=== PATIENT | male | born 1960 | race American Indian/Alaskan Native ===

== ENCOUNTER 2019-07-27 13:15 | Observation (INO) | payer MEDICARE ==
--- NOTE | 2019-07-27 13:38 | Event Note ---
ED Screening Note ED Screening Note: Mr. Michaels has hx of DM and dyslipidemia. Noncompliant with insulin medication. Kussmaul breathing. Referred from PCP today. This initial assessment/diagnostic orders/clinical plan/treatment(s) is/are subject to change based on patients health status, clinical progression and re- assessment by fellow clinical providers in the ED. Further treatment and workup at subsequent clinical providers discretion. Patient/guardian urged not to elope from the ED as their condition may be serious if not clinically assessed and managed. Initial orders include: labs
--- NOTE | 2019-07-27 14:14 | XRay Report ---
CHEST 2 VIEWS INDICATION: nausea malaise. COMPARISON: None FINDINGS: Support devices: None. Heart: Within normal limits. Lungs/pleura: The lung apices and right costophrenic angle has been excluded. Within these limitation s, there is no acute air space or interstitial disease. No pneumothorax. Additional findings: None. IMPRESSION: 1. No acute findings with the limitations above. Signer Name: Gregg Menendez MD Signed: 07/27/2019 2:09 PM Workstation Name: [id number]
[2019-07-27 14:32] LABS: Bacteria,Urine 2+ /HPF (Negative); Bilirubin,Urine NEG (Negative); Blood,Urine MOD (Negative); Color,Urine Yellow (Yellow); Mucus,Urine FEW /HPF
[2019-07-27 14:33] LABS: Protein,Urine >2000 mg dL mg/dL (Negative)
[2019-07-27 14:36] LABS: Basophils # (Auto) 0.1 K/mm3 (0.0-0.1); Basophils % (Auto) 0.7 % (0.0-1.8); Hematocrit 47.9 % (35.5-45.6); Hemoglobin 16.3 gm/dl (11.8-15.2); Lymphocytes # (Auto) 0.8 K/mm3 (1.2-5.4); Lymphocytes % (Auto) 11.5 % (13.4-35.0); Mean Corpuscular HGB Conc 34 % (32-34); Mean Corpuscular Volume 97 fl (84-94); Monocytes # (Auto) 0.7 K/mm3 (0.0-0.8); Monocytes % (Auto) 9.2 % (0.0-7.3); Platelet Count 249 K/mm3 (140-440); Red Blood Count 4.95 M/mm3 (3.65-5.03); Red Cell Distribution Width 13.7 % (13.2-15.2)
[2019-07-27] MEDS ORDERED: SODIUM CHLORIDE 0.9% 1000 ML 2,000 ML IV ONE (14:53)
[2019-07-27] MEDS ORDERED: cefTRIAXone/NS 1 GM/50 ML 1 GM/50 ML BAG IV ONE (14:54)
--- NOTE | 2019-07-27 14:55 | Emergency Department Report ---
ED General Adult HPI - General Chief complaint: Weakness Stated complaint: WEAKNESS, SUGAR HIGH Time Seen by Provider: 07/27/19 14:52 Source: patient Mode of arrival: Ambulatory Limitations: No Limitations - History of Present Illness Initial comments: 59 yo AA male that looks older than stated age comes to ER today with generalized weakness. He went by his PCP today and they sent him to ER. He was a walk in but due to his complaints they sent him here for a work up. His states he has been laying around for a couple days. He has had chills, generalized stomach aches, dec PO intake. Pt states he just feels weak - he endorses intermittent chest pain and sob. On initial exam pt was sleepy and not wanting to participate in conversation. was having to answer questions. Pt has complicated medical hx but is non adherent with his medications. When asked why he states "I dont know" -: Gradual, days(s) Associated Symptoms: chest pain, shortness of breath, weakness Treatments Prior to Arrival: none - Related Data Previous Rx's Medication Instructions Recorded Last Taken Type Cyclobenzaprine [Flexeril] 10 mg PO TID PRN #20 tablet 12/18/15 Unknown Rx Ibuprofen [Motrin 800 MG tab] 800 mg PO Q8HR PRN #30 tablet 12/18/15 Unknown Rx Allergies Allergy/AdvReac Type Severity Reaction Status Date / Time No Known Allergies Allergy Verified 12/18/15 10:36 ED Review of Systems ROS: Stated complaint: WEAKNESS, SUGAR HIGH Other details as noted in HPI Comment: All other systems reviewed and negative ED Past Medical Hx - Past Medical History Previous Medical History?: Yes Hx Hypertension: Yes Hx CVA: No Hx Heart Attack/AMI: No Hx Congestive Heart Failure: No Hx Diabetes: Yes Hx Deep Vein Thrombosis: No Hx Pulmonary Embolism: No Hx GERD: No Hx Liver Disease: No Hx Renal Disease: No Hx of Cancer: No Hx Sickle Cell Disease: No Hx Arthritis: No Hx Headaches / Migraines: No Hx Seizures: No Hx Kidney Stones: No Hx Psychiatric Treatment: Yes () Hx Asthma: No Hx COPD: No Hx Tuberculosis: No Hx Dementia: No Hx HIV: No Additional medical history: HLD - Surgical History Past Surgical History?: No - Family History Family history: other (MOM WAS KILLED AND DAD DEC OF CVA) - Social History Smoking Status: Never Smoker Substance Use Type: None - Medications Home Medications: Home Medications Medication Instructions Recorded Confirmed Last Taken Type Cyclobenzaprine [Flexeril] 10 mg PO TID PRN #20 tablet 12/18/15 Unknown Rx Ibuprofen [Motrin 800 MG tab] 800 mg PO Q8HR PRN #30 tablet 12/18/15 Unknown Rx ED Physical Exam - General Limitations: No Limitations General appearance: alert - Head Head exam: Present: atraumatic, normocephalic - Eye Eye exam: Present: normal appearance - ENT ENT exam: Present: mucous membranes dry - Neck Neck exam: Present: normal inspection - Respiratory Respiratory exam: Present: normal lung sounds bilaterally. Absent: respiratory distress - Cardiovascular Cardiovascular Exam: Present: regular rate, normal rhythm, tachycardia. Absent: systolic murmur, diastolic murmur, rubs, gallop - GI/Abdominal GI/Abdominal exam: Present: soft, normal bowel sounds - Rectal Rectal exam: Present: deferred - Extremities Exam Extremities exam: Present: normal inspection - Back Exam Back exam: Present: normal inspection - Neurological Exam Neurological exam: Present: alert, oriented X3 - Psychiatric Psychiatric exam: Present: other (FLAT) - Skin Skin exam: Present: dry, intact, pallor. Absent: rash ED Course Vital Signs 07/27/19 13:37 Temperature 99.4 F Pulse Rate 99 H Respiratory 18 Rate Blood Pressure 189/107 O2 Sat by Pulse 100 Oximetry - Reevaluation(s) Reevaluation #1: 07/27/19 16:10 MEDS PT IS TO BE ON AT HOME- BUT DOES NOT TAKE METFORMIN ER GLIPIZIDE INSULIN STATIN MED FOR DEPRESSION ED Medical Decision Making - Lab Data Result diagrams: 07/27/19 14:18 07/27/19 14:18 - EKG Data EKG shows normal: sinus rhythm - EKG Data Interpretation: no acute changes - Radiology Data Radiology results: report reviewed, image reviewed CT NAP chest xray NAP - Medical Decision Making Labs 07/27/19 07/27/19 07/27/19 13:54 14:18 14:18 WBC 7.2 RBC 4.95 Hgb 16.3 H Hct 47.9 H MCV 97 H MCH 33 H MCHC 34 RDW 13.7 Plt Count 249 Lymph % (Auto) 11.5 L [place] % (Auto) 9.2 H Eos % (Auto) 0.0 Baso % (Auto) 0.7 Lymph # 0.8 L [place] # 0.7 Eos # 0.0 Baso # 0.1 Seg Neutrophils % 78.6 H Seg Neutrophils # 5.6 VBG pH Sodium 134 L Potassium 4.2 Chloride 94.9 L Carbon Dioxide 20 L Anion Gap 23 BUN 11 Creatinine 1.1 Estimated GFR > 60 BUN/Creatinine Ratio 10 Glucose 299 H POC Glucose 262 H Calcium 9.4 Phosphorus 3.30 Magnesium 1.90 Total Bilirubin 0.20 AST 18 ALT 15 Alkaline Phosphatase 77 Total Protein 7.3 Albumin 3.9 Albumin/Globulin Ratio 1.1 Urine Color Urine Turbidity Urine pH Ur Specific [place] Urine Protein Urine Glucose (UA) Urine Ketones Urine Blood Urine Nitrite Urine Bilirubin Urine Urobilinogen Ur Leukocyte Esterase Urine WBC (Auto) Urine RBC (Auto) U Epithel Cells (Auto) Urine Bacteria (Auto) Urine Mucus 07/27/19 07/27/19 14:18 Unknown WBC RBC Hgb Hct MCV MCH MCHC RDW Plt Count Lymph % (Auto) [place] % (Auto) Eos % (Auto) Baso % (Auto) Lymph # [place] # Eos # Baso # Seg Neutrophils % Seg Neutrophils # VBG pH 7.361 Sodium Potassium Chloride Carbon Dioxide Anion Gap BUN Creatinine Estimated GFR BUN/Creatinine Ratio Glucose POC Glucose Calcium Phosphorus Magnesium Total Bilirubin AST ALT Alkaline Phosphatase Total Protein Albumin Albumin/Globulin Ratio Urine Color Yellow Urine Turbidity Cloudy Urine pH 6.0 Ur Specific [place] 1.031 H Urine Protein >2000 mg dl Urine Glucose (UA) >=500 Urine Ketones 20 Urine Blood Mod Urine Nitrite Neg Urine Bilirubin Neg Urine Urobilinogen 2.0 Ur Leukocyte Esterase Lg Urine WBC (Auto) 168.0 H Urine RBC (Auto) 47.0 U Epithel Cells (Auto) 7.0 Urine Bacteria (Auto) 2+ Urine Mucus Few labs noted ua noted NS/rocephin IV urine culture sent [address] Rich blood cultures/lactic acid ordered serial troponin being collected will admit pt to obs for further evaluation. - Differential Diagnosis ro acs/ro dka/ro urti Critical care attestation.: If time is entered above; I have spent that time in minutes in the direct care of this critically ill patient, excluding procedure time. ED Disposition Clinical Impression: History of chronic hypertension, Non-adherence to medical treatment, Hyperg lycemia, SIRS (systemic inflammatory response syndrome), Dehydration, Nephrotic syndrome Disposition: OP ADMIT IP TO THIS HOSP Is pt being admited?: Yes Does the pt Need Aspirin: Yes Condition: Stable Additional Instructions: DIABETIC DIET STAY WELL HYDRATED TAKE YOUR DAILY MEDS PER YOUR PCP FOLLOW YOUR BLOOD SUGAR MOTRIN OR TYLENOL FOR PAIN OR FEVER FOLLOW UP WITH PCP IN 48 HOURS FOR RECHECK TO BE SURE YOU ARE GETTING BETTER. Time of Disposition: 15:50
[2019-07-27 15:06] LABS: Alanine Aminotransferase 15 units/L (7-56); Albumin 3.9 g/dL (3.9-5); BUN/Creatinine Ratio 10; Blood Urea Nitrogen 11 mg/dL (9-20); Calcium 9.4 mg/dL (8.4-10.2); Hemolysis Index 7
[2019-07-27] MEDS ORDERED: INSULIN REGULAR, HUMAN 100 UNITS/1 ML IV ONE (15:12)
--- NOTE | 2019-07-27 16:03 | Cat Scan Report ---
CT ABDOMEN AND PELVIS WITHOUT CONTRAST HISTORY: MAIN: abd pain x 2 days 1 day n/v and weakness . COMPARISON: CT abdomen/pelvis from 07/31/2015 TECHNIQUE: CT images of the abdomen and pelvis were obtained without administration of intravenous co ntrast. All CT scans at this location are performed using CT dose reduction for ALARA by means of au tomated exposure control. FINDINGS: Lungs/bones: Lung bases are clear. There are degenerative changes within the spine and pelvis with n othing acute. Abdomen/pelvis: There is motion artifact. The liver is mildly enlarged with no focal mass identified. The gallbladder, spleen, pancreas, adrena ls, and proximal GI tract appear unremarkable. There is mild bilateral perinephric stranding but no obstructive stone disease, hydronephrosis, or ma ss. The prostate is enlarged and indents the bladder base. There are again small bilateral bladder divert icula. No pelvic free fluid and no acute colonic abnormality. Terminal ileum and appendix appear norm al. IMPRESSION: 1. No acute abnormality. Incidental findings as above. Signer Name: Gregg Menendez MD Signed: 07/27/2019 3:58 PM Workstation Name: [id number]
[2019-07-27] MEDS ORDERED: ASPIRIN 325 MG TAB PO ONE (16:45)
[2019-07-27] MEDS ORDERED: CYCLOBENZAPRINE 10 MG TAB PO PRN (19:34)
[2019-07-27] MEDS ORDERED: ONDANSETRON 4 MG/2 ML INJ IV PRN (19:35)
[2019-07-27] MEDS ORDERED: HYDROmorphone 1 MG/1 ML INJ IV PRN (19:35)
[2019-07-27] MEDS ORDERED: oxyCODONE /ACETAMINOPHEN 5-325MG TAB PO PRN (19:35)
[2019-07-27] MEDS ORDERED: ACETAMINOPHEN 325 MG TAB PO PRN (19:35)
[2019-07-27] MEDS: cefTRIAXone/NS 2 GM/100 ML 2 GM/100 ML BAG IV SCH (22:23)
[2019-07-27] MEDS: SODIUM CHLORIDE 0.9% 1000 ML 1,000 ML IV SCH (22:24)
[2019-07-27] MEDS: FAMOTIDINE 20 MG/2 ML INJ IV SCH (22:25)
[2019-07-27] MEDS: HEPARIN 5,000 UNIT/1 ML VIAL SUB-Q SCH (22:27)
[2019-07-27] MEDS ORDERED: DEXTROSE 50% IN WATER (25GM) 50 ML SYRINGE IV PRN (23:45)
[2019-07-28 05:11] LABS: Basophils % (Auto) 0.7 % (0.0-1.8); Hematocrit 44.7 % (35.5-45.6); Hemoglobin 15.2 gm/dl (11.8-15.2); Lymphocytes # (Auto) 1.2 K/mm3 (1.2-5.4); Lymphocytes % (Auto) 18.1 % (13.4-35.0); Mean Corpuscular HGB Conc 34 % (32-34); Mean Corpuscular Volume 96 fl (84-94); Monocytes # (Auto) 0.8 K/mm3 (0.0-0.8); Monocytes % (Auto) 12.1 % (0.0-7.3); Platelet Count 235 K/mm3 (140-440); Red Blood Count 4.68 M/mm3 (3.65-5.03); Red Cell Distribution Width 13.9 % (13.2-15.2)
[2019-07-28 05:38] LABS: Alanine Aminotransferase 13 units/L (7-56); Albumin 3.6 g/dL (3.9-5); BUN/Creatinine Ratio 11; Blood Urea Nitrogen 11 mg/dL (9-20); Calcium 8.5 mg/dL (8.4-10.2); Hemolysis Index 1
--- NOTE | 2019-07-28 07:24 | Event Note ---
Date: 07/27/19 See H/p in reports UTI
--- NOTE | 2019-07-28 08:16 | History and Physical Report ---
CHIEF COMPLAINT: High sugars and severe weakness. HISTORY OF PRESENT ILLNESS: A 59-year-old male comes in for increasing weakness. The patient also has been lying around ____ couple of days and not walking along. Also, the patient ____. The patient states that he feels very weak. Also, has ____. Also, patient feels sleepy and tired. PAST MEDICAL HISTORY: Significant for hypertension, GERD and diabetes and ____ none. PAST SURGICAL HISTORY: None. FAMILY HISTORY: Hypertension, coronary artery disease. SOCIAL HISTORY: Does not smoke. REVIEW OF SYSTEMS: Significant for severe weakness ____ and lethargy. PHYSICAL EXAMINATION: GENERAL: A young elderly male, cooperative during examination, lethargic. VITAL SIGNS: Blood pressure is 189/107, temperature is 101.3, repeat blood pressure 200/101. HEENT: Dry mucous membranes. NECK: Supple, no lymphadenopathy, no thyromegaly. LUNGS: Clear to auscultation and percussion. Good air entry. CARDIOVASCULAR: S1, S2 heard. No gallop, no murmur, no rub. Apical impulse in left fifth intercostal space and midclavicular line. ABDOMEN: Soft and benign. No hepatosplenomegaly, no guarding, no rigidity. Hernial orifices are normal. EXTREMITIES: Good pedal pulses. No pedal edema. CENTRAL NERVOUS SYSTEM: Awake, but lethargic. SKIN: Normal. LABORATORY DATA: White count is 7200, H and H is 16.3 and 47.9, platelet count is 349,000. Sodium is 133, potassium is 3.2, chloride is 93.9, bicarbonate of 20, glucose is 299. A1c is 13.3. LFTs are normal. Urine shows ____. Chest x-ray with no infiltrate. EKG normal sinus rhythm, no acute ST-T wave changes. Abdominal CAT scan shows no acute abnormality. ASSESSMENT AND PLAN: 1. The patient is being hypertensive emergency. The patient is admitted for control of blood pressure. The patient was initiated on antihypertensives and IV hydralazine 10 mg q. 3 p.r.n. 2. Uncontrolled diabetes. The patient started on NovoLog mix 70/30. The patient to be counseled about diabetes. Also, dietitian consult. 3. Urinary tract infection, IV Rocephin initiated. 4. Severe debility. The patient to get physical therapy. 5. Deep venous thrombosis prophylaxis, heparin 5000 q. 12. JOB# [id number] SILVIA/NTS
[2019-07-28] MEDS: SODIUM CHLORIDE 0.9% 1000 ML 1,000 ML IV SCH ×2 (08:28→18:11)
[2019-07-28] MEDS: INSULIN LISPRO 100 UNIT/ML SUB-Q SCH ×4 (08:30→22:39)
[2019-07-28] MEDS: cefTRIAXone/NS 2 GM/100 ML 2 GM/100 ML BAG IV SCH (11:10)
[2019-07-28] MEDS: VALSARTAN 160MG TAB PO SCH (11:11)
[2019-07-28] MEDS: FAMOTIDINE 20 MG/2 ML INJ IV SCH ×2 (11:12→22:54)
[2019-07-28] MEDS: HEPARIN 5,000 UNIT/1 ML VIAL SUB-Q SCH ×2 (11:12→22:54)
[2019-07-28] MEDS: GLIMEPIRIDE 4 MG TAB PO SCH (11:12)
--- NOTE | 2019-07-28 14:43 | Progress Note ---
Assessment and Plan Assessment and plan: 59-year-old male patient with significant past medical history of hypertension coronary artery disease was admitted through emergency room with polyuria polydipsia and uncontrolled sugars with severe weakness and fever Initial evaluation is consistent with uncontrolled diabetes mellitus, urinary tract infection and febrile illness --Febrile illness; MAXIMUM TEMPERATURE 101.3 Probably secondary to UTI, continue empiric antibiotics Follow cultures, plenty oral fluids, IV fluids as needed --Urinary tract infection; Continue empiric antibiotics, follow cultures --Uncontrolled diabetes mellitus; Accu-Chek sliding scale coverage and ADA diet and insulin as needed Hemoglobin A1c 10.3 --DVT prophylaxis, Lovenox Closely monitor the patient and adjust the management as needed Plan of care reviewed with the patient and his Answered all the questions Disposition; follow cultures and sensitivities Discharged in medically stable History Interval history: Patient seen and examined medical records reviewed admitted with uncontrolled blood sugars, fevers and urinary tract infection On empiric antibiotics Patient feels slightly better, febrile MAXIMUM TEMPERATURE 101.3 Vital signs reviewed Hospitalist Physical - Constitutional Vitals: Temp Pulse Resp BP Pulse Ox 98.5 F 88 18 149/85 90 07/28/19 06:31 07/28/19 06:31 07/28/19 06:31 07/28/19 06:31 07/28/19 06:31 General appearance: Present: mild distress, well-nourished - EENT Eyes: Present: PERRL, EOM intact - Neck Neck: Present: supple, normal ROM - Respiratory Respiratory effort: normal Respiratory: bilateral: diminished, negative: rales, rhonchi, wheezing - Cardiovascular Rhythm: regular Heart Sounds: Present: S1 & S2 - Extremities Extremities: no ischemia, No edema - Abdominal General gastrointestinal: soft, non-tender, non-distended - Integumentary Integumentary: Present: clear, warm - Psychiatric Psychiatric: appropriate mood/affect, cooperative - Neurologic Neurologic: CNII-XII intact, moves all extremities Results - Labs CBC & Chem 7: 07/28/19 04:37 07/28/19 04:37 Labs: Laboratory Last Values WBC 6.7 K/mm3 (4.5-11.0) 07/28/19 04:37 RBC 4.68 M/mm3 (3.65-5.03) 07/28/19 04:37 Hgb 15.2 gm/dl (11.8-15.2) 07/28/19 04:37 Hct 44.7 % (35.5-45.6) 07/28/19 04:37 MCV 96 fl (84-94) H 07/28/19 04:37 MCH 32 pg (28-32) 07/28/19 04:37 MCHC 34 % (32-34) 07/28/19 04:37 RDW 13.9 % (13.2-15.2) 07/28/19 04:37 Plt Count 235 K/mm3 (140-440) 07/28/19 04:37 Lymph % (Auto) 18.1 % (13.4-35.0) 07/28/19 04:37 [place] % (Auto) 12.1 % (0.0-7.3) H 07/28/19 04:37 Eos % (Auto) 0.0 % (0.0-4.3) 07/28/19 04:37 Baso % (Auto) 0.7 % (0.0-1.8) 07/28/19 04:37 Lymph # 1.2 K/mm3 (1.2-5.4) 07/28/19 04:37 [place] # 0.8 K/mm3 (0.0-0.8) 07/28/19 04:37 Eos # 0.0 K/mm3 (0.0-0.4) 07/28/19 04:37 Baso # 0.0 K/mm3 (0.0-0.1) 07/28/19 04:37 Seg Neutrophils % 69.1 % (40.0-70.0) 07/28/19 04:37 Seg Neutrophils # 4.6 K/mm3 (1.8-7.7) 07/28/19 04:37 VBG pH 7.361 (7.320-7.420) 07/27/19 14:18 Sodium 137 mmol/L (137-145) 07/28/19 04:37 Potassium 4.2 mmol/L (3.6-5.0) 07/28/19 04:37 Chloride 99.3 mmol/L (98-107) 07/28/19 04:37 Carbon Dioxide 23 mmol/L (22-30) 07/28/19 04:37 Anion Gap 19 mmol/L 07/28/19 04:37 BUN 11 mg/dL (9-20) 07/28/19 04:37 Creatinine 1.0 mg/dL (0.8-1.5) 07/28/19 04:37 Estimated GFR > 60 ml/min 07/28/19 04:37 BUN/Creatinine Ratio 11 % 07/28/19 04:37 Glucose 223 mg/dL (75-100) H 07/28/19 04:37 POC Glucose 287 (70-105) H 07/28/19 12:09 Hemoglobin A1c 13.3 % (4-6) H 07/28/19 04:37 Lactic Acid 1.60 mmol/L (0.7-2.0) 07/27/19 16:45 Calcium 8.5 mg/dL (8.4-10.2) 07/28/19 04:37 Phosphorus 3.30 mg/dL (2.5-4.5) 07/27/19 14:18 Magnesium 1.90 mg/dL (1.7-2.3) 07/27/19 14:18 Total Bilirubin 0.20 mg/dL (0.1-1.2) 07/28/19 04:37 AST 17 units/L (5-40) 07/28/19 04:37 ALT 13 units/L (7-56) 07/28/19 04:37 Alkaline Phosphatase 65 units/L (35-129) 07/28/19 04:37 Troponin T < 0.010 ng/mL (0.00-0.029) 07/27/19 16:45 Total Protein 6.4 g/dL (6.3-8.2) 07/28/19 04:37 Albumin 3.6 g/dL (3.9-5) L 07/28/19 04:37 Albumin/Globulin Ratio 1.3 % 07/28/19 04:37 Urine Color Yellow (Yellow) 07/27/19 Unknown Urine Turbidity Cloudy (Clear) 07/27/19 Unknown Urine pH 6.0 (5.0-7.0) 07/27/19 Unknown Ur Specific [place] 1.031 (1.003-1.030) H 07/27/19 Unknown Urine Protein >2000 mg dl mg/dL (Negative) 07/27/19 Unknown Urine Glucose (UA) >=500 mg/dL (Negative) 07/27/19 Unknown Urine Ketones 20 mg/dL (Negative) 07/27/19 Unknown Urine Blood Mod (Negative) 07/27/19 Unknown Urine Nitrite Neg (Negative) 07/27/19 Unknown Urine Bilirubin Neg (Negative) 07/27/19 Unknown Urine Urobilinogen 2.0 mg/dL (<2.0) 07/27/19 Unknown Ur Leukocyte Esterase Lg (Negative) 07/27/19 Unknown Urine WBC (Auto) 168.0 /HPF (0.0-6.0) H 07/27/19 Unknown Urine RBC (Auto) 47.0 /HPF (0.0-6.0) 07/27/19 Unknown U Epithel Cells (Auto) 7.0 /HPF (0-13.0) 07/27/19 Unknown Urine Bacteria (Auto) 2+ /HPF (Negative) 07/27/19 Unknown Urine Mucus Few /HPF 07/27/19 Unknown Active Medications - Current Medications Current Medications: Generic Name Dose Route Start Last Admin Trade Name Freq PRN Reason Stop Dose Admin Acetaminophen 650 mg 07/27/19 19:35 Tylenol PO Q4H PRN Pain MILD(1-3)/Fever >100.5/LITTLE Cyclobenzaprine HCl 10 mg 07/27/19 19:34 Flexeril PO TID PRN Muscle Spasm Dextrose 0 ml 07/27/19 23:45 D50w (25gm) Syringe IV Q30MIN PRN Hypoglycemia Protocol Famotidine 20 mg 07/27/19 22:00 07/28/19 11:12 Pepcid IV 20 mg BID AMRITA Administration Glimepiride 4 mg 07/28/19 09:00 07/28/19 11:12 Amaryl PO 4 mg QDDIAB AMRITA Administration Heparin Sodium (Porcine) 5,000 unit 07/27/19 22:00 07/28/19 11:12 Heparin SUB-Q 5,000 unit Q12HR AMRITA Administration Hydromorphone HCl 0.5 mg 07/27/19 19:35 Dilaudid IV Q3H PRN Pain , Severe (7-10) Sodium Chloride 1,000 mls @ 100 mls/hr 07/27/19 19:45 07/28/19 08:28 Nacl 0.9% 1000 Ml IV 100 mls/hr DIRECT AMRITA Administration Ceftriaxone Sodium 2 gm in 100 mls @ 200 mls/hr 07/27/19 20:00 07/28/19 11:10 Rocephin/Ns 2 Gm/100 Ml IV 200 mls/hr Q24HR AMRITA Administration Protocol Insulin Human Lispro 0 unit 07/28/19 07:30 07/28/19 13:10 Humalog SUB-Q 2 unit ACHS AMRITA Administration Protocol Ondansetron HCl 4 mg 07/27/19 19:35 Zofran IV Q8H PRN Nausea And Vomiting Oxycodone/Acetaminophen 1 tab 07/27/19 19:35 07/27/19 22:25 Percocet 5/325 PO 1 tab Q6H PRN Administration Pain, Moderate (4-6) Sodium Chloride 10 ml 07/27/19 22:00 07/28/19 11:13 Sodium Chloride Flush Syringe 10 Ml IV 10 ml BID AMRITA Administration Sodium Chloride 10 ml 07/27/19 19:35 Sodium Chloride Flush Syringe 10 Ml IV PRN PRN LINE FLUSH Valsartan 160 mg 07/28/19 10:00 07/28/19 11:11 Diovan PO 160 mg DAILY AMRITA Administration Nutrition/Malnutrition Assess - Dietary Evaluation Nutrition/Malnutrition Findings: Nutrition Notes Start: 07/28/19 10:29 Freq: Status: Active Protocol: Document 07/28/19 10:29 AP (Rec: 07/28/19 11:22 AP [id number]) Co-Sign 07/28/19 10:29 LP Nutrition Notes Need for Assessment generated from: MD Order,MST Initial or Follow up Assessment Current Diagnosis Diabetes,Hypertension Other Pertinent Diagnosis GERD, UTI, dehydration Current Diet Regular Labs/Tests BG 223 A1c 13.3 Pertinent Medications Humalog percocet NS 100ml/hr pepcid Height 6 ft 2 in Weight 100.2 kg [place] Body Weight (kg) 86.36 BMI 28.3 Intake Prior to Admission Fair Weight Status Overweight Subjective/Other Information Consult for MST. Pt states his appetite is poor instay. Pt denies any recent weight loss. Pt ate 50% of bfast. No wasting noted. Burn Absent Trauma Absent GI Symptoms None Current % PO Fair (50-74%) Minimum of two criteria No physical signs of malnutrition #1 Nutrition Diagnosis Inadequate oral intake Etiology hyperglycemia, weakness As Evidenced by Signs and Symptoms Pt reoprts consuming <50% bfast tray, poor appetite Is patient on ventilator? No Is Patient Ambulatory and/or Out of Bed Yes REE-([place]-St. Jeor-ambulatory/OOB) [ 2452.775 NUTR.MSJOOB] Kcal/Kg value to use for calculation 21 Approximate Energy Requirements Using 2104 kcal/Kg Calculation Used for Recommendations Kcal/kg Additional Notes PRO needs: 80-100g (0.8-1g/kg) Fluids: 1ml/kcal or per MD Nutrition Intervention Change Diet Order: Cardiac/Consistent carb Add Supplement/Snack (indicate name/kcal Glucerna BID /protein ) Provides kCal: 440 Provides Protein (gm) 20 Patient aware of follow up options Yes Goal #1 Pt meet >80% kcal/PRO needs via PO/ONS Follow-Up By: 08/02/19 Additional Comments F/U for PO/ONS intakes. Diet education-DM.
[2019-07-29 05:39] VITALS: BP 148/82
[2019-07-29] MEDS: SODIUM CHLORIDE 0.9% 1000 ML 1,000 ML IV SCH (06:28)
[2019-07-29] MEDS: GLIMEPIRIDE 4 MG TAB PO SCH (09:29)
[2019-07-29] MEDS: INSULIN LISPRO 100 UNIT/ML SUB-Q SCH (09:32)
[2019-07-29] MEDS: FAMOTIDINE 20 MG/2 ML INJ IV SCH (10:49)
[2019-07-29] MEDS: cefTRIAXone/NS 2 GM/100 ML 2 GM/100 ML BAG IV SCH (10:49)
[2019-07-29] MEDS: VALSARTAN 160MG TAB PO SCH (10:52)
[2019-07-29] MEDS: HEPARIN 5,000 UNIT/1 ML VIAL SUB-Q SCH (10:52)
--- NOTE | 2019-07-29 11:36 | Discharge Summary ---
Providers - Providers Date of Admission: 07/27/19 16:38 Date of discharge: 07/29/19 Attending physician: SANNA NAIR 07/28/19 07:31 Consult to Dietitian/Nutrition [CONS] Routine Physician Instructions: Reason For Exam: Reason for Consult: Pt needs oral supplement Physical Therapy Evaluation and Treat [CONS] Routine Comment: Reason For Exam: Debility Primary care physician: NARDA QUIROGA Hospitalization Condition: Stable Pertinent studies: CT abdomen and pelvis Hospital course: 59-year-old male patient with significant past medical history of hypertension coronary artery disease was admitted through emergency room with polyuria polydipsia and uncontrolled sugars with severe weakness and fever Initial evaluation is consistent with uncontrolled diabetes mellitus, urinary tract infection and febrile illness --Febrile illness; MAXIMUM TEMPERATURE 101.3 Probably secondary to UTI, continue empiric antibiotics Follow cultures, plenty oral fluids, IV fluids as needed --Urinary tract infection; Continue empiric antibiotics, follow cultures --Uncontrolled diabetes mellitus; Accu-Chek sliding scale coverage and ADA diet and insulin as needed Hemoglobin A1c 10.3 --DVT prophylaxis, Lovenox Time spent for discharge: 32 min Core Measure Documentation - Palliative Care Palliative Care/ Comfort Measures: Not Applicable Exam - Constitutional Vitals: Temp Pulse Resp BP Pulse Ox 98.3 F 77 20 148/82 94 07/29/19 05:37 07/29/19 10:52 07/29/19 05:37 07/29/19 10:52 07/29/19 05:37 Plan Activity: no restrictions Diet: diabetic Additional Instructions: Advised to see primary care physician in 3-5 days. Advised to see private industrial registered nurse for management of diabetes mellitus Follow up with: NARDA QUIROGA SR, MD [Primary Care Provider] - 7 Days Prescriptions: Glimepiride [Amaryl] 4 mg PO QDDIAB #30 tablet Valsartan [Diovan] 160 mg PO DAILY #30 tablet levoFLOXacin [Levaquin] 750 mg PO QDAY #5 tablet
[2019-07-29] MEDS ORDERED: FAMOTIDINE 20 MG TAB PO SCH (22:00)
== END 2019-07-29 13:34 | disposition home or self-care (01) ==
LOC: ED 13:15 → 3A 16:38
PROVIDERS: ADMIT Internal Medicine; ATTEND Internal Medicine
DX: E11.65 Type 2 diabetes mellitus with hyperglycemia (principal); R65.10 Systemic inflammatory response syndrome (SIRS) of non-infectious origin without acute organ dysfunction; E86.0 Dehydration; I16.0 Hypertensive urgency; N39.0 Urinary tract infection, site not specified; R53.81 Other malaise; K21.9 Gastro-esophageal reflux disease without esophagitis; N04.9 Nephrotic syndrome with unspecified morphologic changes; F17.210 Nicotine dependence, cigarettes, uncomplicated
CPT/HCPCS: 36415; 71046; 74176; 80053; 81001; 82140; 82805; 82962; 83036; 83735; 84100; 84484; 85025; 87040; 87086; 93005; 93010; 96361; 96365; 96366; 96372; 96375; 96376; 97162; 99284; 99406; G0378; J0696; J1644; J7030; J1815

== ENCOUNTER 2021-10-24 02:05 | Emergency (ER) | payer MEDICARE ==
[2021-10-24 02:15] VITALS: BP 141/79
== END 2021-10-24 02:20 | disposition left against medical advice (07) ==
LOC: ED 02:05
DX: E16.2 Hypoglycemia, unspecified (principal); Z53.21 Procedure and treatment not carried out due to patient leaving prior to being seen by health care provider

== ENCOUNTER 2022-03-22 20:25 | Inpatient (IN) | payer MEDICARE ==
[2022-03-22] MEDS ORDERED: SODIUM CHLORIDE 0.9% 1000 ML 1,000 ML IV ONE ×2 (21:31→23:33)
--- NOTE | 2022-03-22 22:09 | XRay Report ---
CHEST 1 VIEW 03/22/2022 9:03 PM INDICATION / CLINICAL INFORMATION: Altered Mental Status. COMPARISON: 2 views of the chest from 07/27/2019. FINDINGS: SUPPORT DEVICES: None. HEART / MEDIASTINUM: No significant abnormality. LUNGS / PLEURA: No significant pulmonary abnormality. No significant pleural effusion. No pneumothora x. ADDITIONAL FINDINGS: No significant additional findings. IMPRESSION: 1. No acute abnormality of the chest. Signer Name: Naresh Roldan MD Signed: 03/22/2022 10:05 PM Workstation Name: [id number]
--- NOTE | 2022-03-22 22:17 | Cat Scan Report ---
CT HEAD WITHOUT CONTRAST INDICATION / CLINICAL INFORMATION: Altered Mental Status. TECHNIQUE: All CT scans at this location are performed using CT dose reduction for ALARA by means of automated e xposure control. COMPARISON: None available. FINDINGS: HEMORRHAGE: No evidence of intracranial hemorrhage or extra-axial fluid collection. EXTRA-AXIAL SPACES: Cortical sulci and sylvian fissures are at the upper limit size for the patient's age of 61 years. Basilar cisterns have an unremarkable appearance. VENTRICULAR SYSTEM: The third and lateral ventricles are mildly enlarged reflecting presence of paren chymal volume loss. CEREBRAL PARENCHYMA: Extensive periventricular, subcortical deep white matter lucency is observed. Th is is probably secondary to advanced microvascular ischemic change. There is no indication of recent infarction. 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 The largest of these is located in the left putamen. Additional remote small deep gangliocapsular infarctions are observed bilaterally. MIDLINE SHIFT OR HERNIATION: There is no mass effect. CEREBELLUM / BRAINSTEM: Brainstem has an unremarkable appearance. Age related cerebellar atrophy is n oted. MIDLINE STRUCTURES:Pituitary gland has an unremarkable appearance. No abnormalities are seen in the p ineal region. INTRACRANIAL VESSELS:Calcified atherosclerotic plaque is present along the course of the cavernous se gments of both internal carotid arteries. Similar findings are seen at the distal vertebral arteries. CRANIOCERVICAL JUNCTION:No significant abnormality. ORBITS: Status post bilateral cataract surgery. No additional abnormality. SOFT TISSUES of HEAD: No significant abnormality. CALVARIUM: Evaluation of bone windows reveals no abnormalities. PARANASAL SINUSES / MASTOID AIR CELLS: Paranasal sinuses are free from inflammatory mucosal disease. Opacification of multiple left-sided mastoid air cells is noted. This could be secondary to mastoid e ffusions. Mastoiditis could have a similar imaging appearance. IMPRESSION: 1. No acute intracranial abnormality. 2. Advanced microvascular ischemic change and multifocal remote small deep infarctions are identified . Signer Name: Ben Funez MD Signed: 03/22/2022 10:12 PM Workstation Name: [id number]
[2022-03-22 22:32] LABS: Basophils % (Auto) 0.3 % (0.0-1.8); Eosinophils # (Auto) 0.1 K/mm3 (0.0-0.4); Eosinophils % (Auto) 0.9 % (0.0-4.3); Hemoglobin 12.7 gm/dl (11.8-15.2); Lymphocytes # (Auto) 0.7 K/mm3 (1.2-5.4); Lymphocytes % (Auto) 5.3 % (13.4-35.0); Mean Corpuscular HGB Conc 33 % (32-34); Mean Corpuscular Volume 95 fl (84-94); Monocytes # (Auto) 0.5 K/mm3 (0.0-0.8); Monocytes % (Auto) 3.5 % (0.0-7.3); Platelet Count 279 K/mm3 (140-440); Red Blood Count 4.02 M/mm3 (3.65-5.03); Red Cell Distribution Width 14.6 % (13.2-15.2)
[2022-03-22 22:51] LABS: BUN/Creatinine Ratio 13
[2022-03-22 23:16] LABS: Alanine Aminotransferase 14 units/L (7-56); Albumin 4.2 g/dL (3.9-5); Blood Urea Nitrogen 18 mg/dL (9-20); Calcium 9.3 mg/dL (8.4-10.2); Hemolysis Index 18
--- NOTE | 2022-03-23 03:29 | Emergency Department Report ---
ED Altered Mental Status HPI - General Chief Complaint: Altered Mental Status Stated Complaint: TYPE 2 DIABETIC NOT EATING Time Seen by Provider: 03/22/22 21:18 Source: patient Mode of arrival: Ambulatory Limitations: No Limitations - History of Present Illness Initial Comments: Patient is 61-year-old male with history of diabetes and hypertension brought in for altered mental status. Further history limited secondary to altered mental status. No family currently present. - Related Data Previous Rx's Medication Instructions Recorded Last Taken Type Cyclobenzaprine [Flexeril 10 MG 10 mg PO TID PRN #20 tablet 12/18/15 Unknown Rx TAB] Ibuprofen [Motrin 800 MG tab] 800 mg PO Q8HR PRN #30 tablet 12/18/15 Unknown Rx Glimepiride [Amaryl] 4 mg PO QDDIAB #30 tablet 07/29/19 Unknown Rx Valsartan [Diovan] 160 mg PO DAILY #30 tablet 07/29/19 Unknown Rx levoFLOXacin [Levaquin] 750 mg PO QDAY #5 tablet 07/29/19 Unknown Rx Allergies Allergy/AdvReac Type Severity Reaction Status Date / Time No Known Allergies Allergy Verified 10/24/21 02:20 ED Review of Systems ROS: Stated complaint: TYPE 2 DIABETIC NOT EATING Other details as noted in HPI Comment: Unobtainable due to pts medical conditions ED Past Medical Hx - Past Medical History Previous Medical History?: Yes Hx Hypertension: Yes Hx CVA: No Hx Heart Attack/AMI: No Hx Congestive Heart Failure: No Hx Diabetes: Yes Hx Deep Vein Thrombosis: No Hx Pulmonary Embolism: No Hx GERD: No Hx Liver Disease: No Hx Renal Disease: No Hx Sickle Cell Disease: No Hx Arthritis: No Hx Headaches / Migraines: No Hx Seizures: No Hx Kidney Stones: No Hx Psychiatric Treatment: Yes () Hx Asthma: No Hx COPD: No Hx Tuberculosis: No Hx Dementia: No Hx HIV: No Additional medical history: HLD - Surgical History Past Surgical History?: No - Social History Smoking Status: Never Smoker - Medications Home Medications: Home Medications Medication Instructions Recorded Confirmed Last Taken Type Cyclobenzaprine [Flexeril 10 MG 10 mg PO TID PRN #20 tablet 12/18/15 Unknown Rx TAB] Ibuprofen [Motrin 800 MG tab] 800 mg PO Q8HR PRN #30 tablet 12/18/15 Unknown Rx Glimepiride [Amaryl] 4 mg PO QDDIAB #30 tablet 07/29/19 Unknown Rx Valsartan [Diovan] 160 mg PO DAILY #30 tablet 07/29/19 Unknown Rx levoFLOXacin [Levaquin] 750 mg PO QDAY #5 tablet 07/29/19 Unknown Rx ED Physical Exam - General Limitations: No Limitations General appearance: other (Patient appears altered/confused) - Head Head exam: Present: atraumatic, normocephalic - Eye Eye exam: Present: normal appearance. Absent: scleral icterus - Respiratory Respiratory exam: Present: normal lung sounds bilaterally. Absent: respiratory distress - Cardiovascular Cardiovascular Exam: Present: regular rate, normal rhythm, normal heart sounds - GI/Abdominal GI/Abdominal exam: Present: soft. Absent: distended, tenderness, organomegaly, mass - Rectal Rectal exam: Present: deferred - Neurological Exam Neurological exam: Present: altered - Skin Skin exam: Present: warm, dry, intact, normal color ED Course Vital Signs 03/22/22 03/22/22 20:29 21:31 Temperature 97.5 F L Pulse Rate 61 Respiratory 16 Rate Blood Pressure 70/43 [Right] O2 Sat by Pulse 100 100 Oximetry - Lab Data Result diagrams: 03/22/22 22:05 03/22/22 22:05 Lab Results 03/22/22 03/22/22 03/22/22 Range/Units 22:05 22:05 22:05 WBC 13.8 H (4.5-11.0) K/mm3 RBC 4.02 (3.65-5.03) M/mm3 Hgb 12.7 (11.8-15.2) gm/dl Hct 38.0 (35.5-45.6) % MCV 95 H (84-94) fl MCH 32 (28-32) pg MCHC 33 (32-34) % RDW 14.6 (13.2-15.2) % Plt Count 279 (140-440) K/mm3 Lymph % (Auto) 5.3 L (13.4-35.0) % [place] % (Auto) 3.5 (0.0-7.3) % Eos % (Auto) 0.9 (0.0-4.3) % Baso % (Auto) 0.3 (0.0-1.8) % Lymph # (Auto) 0.7 L (1.2-5.4) K/mm3 [place] # (Auto) 0.5 (0.0-0.8) K/mm3 Eos # (Auto) 0.1 (0.0-0.4) K/mm3 Baso # (Auto) 0.0 (0.0-0.1) K/mm3 Seg Neutrophils % 90.0 H (40.0-70.0) % Seg Neutrophils # 12.4 H (1.8-7.7) K/mm3 Sodium 140 (137-145) mmol/L Potassium 5.1 H (3.6-5.0) mmol/L Chloride 102.3 (98-107) mmol/L Carbon Dioxide 25 (22-30) mmol/L Anion Gap 18 mmol/L BUN 18 (9-20) mg/dL Creatinine 1.4 H (0.8-1.3) mg/dL Estimated GFR > 60 ml/min BUN/Creatinine Ratio 13 % Glucose 322 H (75-100) mg/dL Lactic Acid 2.70 H* (0.7-2.0) mmol/L Calcium 9.3 (8.4-10.2) mg/dL Total Bilirubin < 0.20 (0.1-1.2) mg/dL AST 9 (5-40) units/L ALT 14 (7-56) units/L Alkaline Phosphatase 78 (35-129) units/L Ammonia (25-60) umol/L Total Creatine Kinase 179 H (55-170) units/L Troponin T < 0.010 (0.00-0.029) ng/mL Total Protein 6.4 (6.3-8.2) g/dL Albumin 4.2 (3.9-5) g/dL Albumin/Globulin Ratio 1.6 % TSH (0.270-4.200) mlU/mL Salicylates (2.8-20.0) mg/dL Acetaminophen (10.0-30.0) ug/mL Plasma/Serum Alcohol (0-0.07) % 03/22/22 03/22/22 03/22/22 Range/Units 22:05 22:05 22:05 WBC (4.5-11.0) K/mm3 RBC (3.65-5.03) M/mm3 Hgb (11.8-15.2) gm/dl Hct (35.5-45.6) % MCV (84-94) fl MCH (28-32) pg MCHC (32-34) % RDW (13.2-15.2) % Plt Count (140-440) K/mm3 Lymph % (Auto) (13.4-35.0) % [place] % (Auto) (0.0-7.3) % Eos % (Auto) (0.0-4.3) % Baso % (Auto) (0.0-1.8) % Lymph # (Auto) (1.2-5.4) K/mm3 [place] # (Auto) (0.0-0.8) K/mm3 Eos # (Auto) (0.0-0.4) K/mm3 Baso # (Auto) (0.0-0.1) K/mm3 Seg Neutrophils % (40.0-70.0) % Seg Neutrophils # (1.8-7.7) K/mm3 Sodium (137-145) mmol/L Potassium (3.6-5.0) mmol/L Chloride (98-107) mmol/L Carbon Dioxide (22-30) mmol/L Anion Gap mmol/L BUN (9-20) mg/dL Creatinine (0.8-1.3) mg/dL Estimated GFR ml/min BUN/Creatinine Ratio % Glucose (75-100) mg/dL Lactic Acid (0.7-2.0) mmol/L Calcium (8.4-10.2) mg/dL Total Bilirubin (0.1-1.2) mg/dL AST (5-40) units/L ALT (7-56) units/L Alkaline Phosphatase (35-129) units/L Ammonia 23.0 L (25-60) umol/L Total Creatine Kinase (55-170) units/L Troponin T (0.00-0.029) ng/mL Total Protein (6.3-8.2) g/dL Albumin (3.9-5) g/dL Albumin/Globulin Ratio % TSH 1.360 (0.270-4.200) mlU/mL Salicylates < 0.3 L (2.8-20.0) mg/dL Acetaminophen (10.0-30.0) ug/mL Plasma/Serum Alcohol (0-0.07) % 03/22/22 03/22/22 03/23/22 Range/Units 22:05 22:05 00:28 WBC (4.5-11.0) K/mm3 RBC (3.65-5.03) M/mm3 Hgb (11.8-15.2) gm/dl Hct (35.5-45.6) % MCV (84-94) fl MCH (28-32) pg MCHC (32-34) % RDW (13.2-15.2) % Plt Count (140-440) K/mm3 Lymph % (Auto) (13.4-35.0) % [place] % (Auto) (0.0-7.3) % Eos % (Auto) (0.0-4.3) % Baso % (Auto) (0.0-1.8) % Lymph # (Auto) (1.2-5.4) K/mm3 [place] # (Auto) (0.0-0.8) K/mm3 Eos # (Auto) (0.0-0.4) K/mm3 Baso # (Auto) (0.0-0.1) K/mm3 Seg Neutrophils % (40.0-70.0) % Seg Neutrophils # (1.8-7.7) K/mm3 Sodium (137-145) mmol/L Potassium (3.6-5.0) mmol/L Chloride (98-107) mmol/L Carbon Dioxide (22-30) mmol/L Anion Gap mmol/L BUN (9-20) mg/dL Creatinine (0.8-1.3) mg/dL Estimated GFR ml/min BUN/Creatinine Ratio % Glucose (75-100) mg/dL Lactic Acid 2.60 H* (0.7-2.0) mmol/L Calcium (8.4-10.2) mg/dL Total Bilirubin (0.1-1.2) mg/dL AST (5-40) units/L ALT (7-56) units/L Alkaline Phosphatase (35-129) units/L Ammonia (25-60) umol/L Total Creatine Kinase (55-170) units/L Troponin T (0.00-0.029) ng/mL Total Protein (6.3-8.2) g/dL Albumin (3.9-5) g/dL Albumin/Globulin Ratio % TSH (0.270-4.200) mlU/mL Salicylates (2.8-20.0) mg/dL Acetaminophen 5.0 L (10.0-30.0) ug/mL Plasma/Serum Alcohol < 0.01 (0-0.07) % - Medical Decision Making Chemistry reveals serum potassium of 5.1, glucose of 322 and lactic acid of 2.7. WBC count 13. Patient given IV fluids. CT head shows no acute findings however shows advanced microvascular ischemic change. Urinalysis pending. Will admit to hospitalist for further evaluation/management. Critical care attestation.: If time is entered above; I have spent that time in minutes in the direct care of this critically ill patient, excluding procedure time. ED Disposition Clinical Impression: Altered mental status Disposition: 09 ADMITTED INPATIENT Is pt being admited?: Yes Condition: Stable
[2022-03-23] MEDS ORDERED: ALBUTEROL 2.5 MG/3 ML NEBU IH PRN (05:09)
[2022-03-23] MEDS ORDERED: MORPHINE 2 MG/1 ML INJ IV PRN (05:09)
[2022-03-23] MEDS ORDERED: ONDANSETRON 4 MG/2 ML INJ IV PRN (05:09)
[2022-03-23] MEDS ORDERED: ACETAMINOPHEN 325 MG TAB PO PRN (05:09)
[2022-03-23] MEDS ORDERED: DEXTROSE 50% IN WATER (25GM) 50 ML SYRINGE IV PRN (05:09)
[2022-03-23] MEDS ORDERED: MORPHINE 4 MG/1 ML INJ IV PRN (05:09)
--- NOTE | 2022-03-23 05:17 | History and Physical Report ---
History of Present Illness Date of examination: 03/23/22 Date of admission: 03/23/22 Chief complaint: Altered mental status History of present illness: 61-year-old male with history of diabetes and hypertension, and psychiatric illness was brought to the emergency room brought because of altered mental status. Further history limited secondary to altered mental status. No family currently present. Patient has type 2 diabetes and patient is not eating. In the emergency room patient WBC is 13.8, lactic acid 2.70, glucose 322, BUN [address] head shows no acute intracranial abnormality. Advanced microvascular ischemic changes and multifocal remote small deep infection are identified. Chest x-ray shows no acute abnormality of the chest. So we are going to admit the patient and put the patient on IV fluid IV antibiotic and consult neurology for evaluation Past History Past Medical History: diabetes, hypertension, hyperlipidemia, other (Psychiatric illness) Past Surgical History: No surgical history Social history: no significant social history Family history: diabetes Medications and Allergies Allergies Allergy/AdvReac Type Severity Reaction Status Date / Time No Known Allergies Allergy Verified 10/24/21 02:20 Home Medications Medication Instructions Recorded Confirmed Last Taken Type Cyclobenzaprine [Flexeril 10 MG 10 mg PO TID PRN #20 tablet 12/18/15 Unknown Rx TAB] Ibuprofen [Motrin 800 MG tab] 800 mg PO Q8HR PRN #30 tablet 12/18/15 Unknown Rx Glimepiride [Amaryl] 4 mg PO QDDIAB #30 tablet 07/29/19 Unknown Rx Valsartan [Diovan] 160 mg PO DAILY #30 tablet 07/29/19 Unknown Rx levoFLOXacin [Levaquin] 750 mg PO QDAY #5 tablet 07/29/19 Unknown Rx Active Meds: Active Medications Acetaminophen (Acetaminophen 325 Mg Tab) 650 mg PO Q4H PRN PRN Reason: Pain MILD(1-3)/Fever >100.5/LITTLE Albuterol (Albuterol 2.5 Mg/3 Ml Nebu) 2.5 mg IH Q3HRT PRN PRN Reason: Shortness Of Breath Albuterol/Ipratropium (Ipratropium/Albuterol Sulfate 3 Ml Ampul.Neb) 1 ampul IH Q6HRT [facility] Dextrose (Dextrose 50% In Water (25gm) 50 Ml Syringe) 50 ml IV Q30MIN PRN; Protocol PRN Reason: Hypoglycemia Famotidine (Famotidine 20 Mg/2 Ml Inj) 20 mg IV BID [facility] Sodium Chloride (Nacl 0.9% 1000 Ml) 1,000 mls @ 100 mls/hr IV DIRECT [facility] Ceftriaxone Sodium (Rocephin/Ns 2 Gm/100 Ml) 2 gm in 100 mls @ 200 mls/hr IV Q24H [facility]; Protocol Insulin Human Lispro (Insulin Lispro 100 Unit/Ml) 0 unit SUB-Q Q6HR [facility]; Protocol Morphine Sulfate (Morphine 2 Mg/1 Ml Inj) 2 mg IV Q4H PRN PRN Reason: Pain, Moderate (4-6) Morphine Sulfate (Morphine 4 Mg/1 Ml Inj) 4 mg IV Q4H PRN PRN Reason: Pain , Severe (7-10) Ondansetron HCl (Ondansetron 4 Mg/2 Ml Inj) 4 mg IV Q8H PRN PRN Reason: Nausea And Vomiting Sodium Chloride (Sodium Chloride 0.9% 10 Ml Flush Syringe) 10 ml IV BID [facility] Sodium Chloride (Sodium Chloride 0.9% 10 Ml Flush Syringe) 10 ml IV PRN PRN PRN Reason: LINE FLUSH Valsartan (Valsartan 160mg Tab) 160 mg PO DAILY [facility] Review of Systems All systems: negative Constitutional: fatigue, weakness, malaise, lethargy Exam - Constitutional Vitals: Temp Pulse Resp BP Pulse Ox 97.5 F L 61 16 70/43 100 03/22/22 20:29 03/22/22 20:29 03/22/22 20:29 03/22/22 20:29 03/22/22 21:31 General appearance: Present: no acute distress, well-nourished - EENT Eyes: Present: PERRL ENT: hearing intact, clear oral mucosa - Neck Neck: Present: supple, normal ROM - Respiratory Respiratory effort: normal Respiratory: bilateral: CTA - Cardiovascular Heart Sounds: Present: S1 & S2. Absent: rub, click - Extremities Extremities: pulses symmetrical, No edema Peripheral Pulses: within normal limits - Abdominal General gastrointestinal: Present: soft, non-tender, non-distended, normal bowel sounds Male genitourinary: Present: normal - Integumentary Integumentary: Present: clear, warm, dry - Musculoskeletal Musculoskeletal: gait normal, strength equal bilaterally - Psychiatric Psychiatric: appropriate mood/affect, intact judgment & insight - Neurologic Neurologic: CNII-XII intact, moves all extremities HEART Score - HEART Score Troponin: Troponin T < 0.010 ng/mL (0.00-0.029) 03/22/22 22:05 Results - Labs CBC & Chem 7: 03/22/22 22:05 03/22/22 22:05 Labs: Laboratory Last Values WBC 13.8 K/mm3 (4.5-11.0) H 03/22/22 22:05 RBC 4.02 M/mm3 (3.65-5.03) 03/22/22 22:05 Hgb 12.7 gm/dl (11.8-15.2) 03/22/22 22:05 Hct 38.0 % (35.5-45.6) 03/22/22 22:05 MCV 95 fl (84-94) H 03/22/22 22:05 MCH 32 pg (28-32) 03/22/22 22:05 MCHC 33 % (32-34) 03/22/22 22:05 RDW 14.6 % (13.2-15.2) 03/22/22 22:05 Plt Count 279 K/mm3 (140-440) 03/22/22 22:05 Lymph % (Auto) 5.3 % (13.4-35.0) L 03/22/22 22:05 [place] % (Auto) 3.5 % (0.0-7.3) 03/22/22 22:05 Eos % (Auto) 0.9 % (0.0-4.3) 03/22/22 22:05 Baso % (Auto) 0.3 % (0.0-1.8) 03/22/22 22:05 Lymph # (Auto) 0.7 K/mm3 (1.2-5.4) L 03/22/22 22:05 [place] # (Auto) 0.5 K/mm3 (0.0-0.8) 03/22/22 22:05 Eos # (Auto) 0.1 K/mm3 (0.0-0.4) 03/22/22 22:05 Baso # (Auto) 0.0 K/mm3 (0.0-0.1) 03/22/22 22:05 Seg Neutrophils % 90.0 % (40.0-70.0) H 03/22/22 22:05 Seg Neutrophils # 12.4 K/mm3 (1.8-7.7) H 03/22/22 22:05 Sodium 140 mmol/L (137-145) 03/22/22 22:05 Potassium 5.1 mmol/L (3.6-5.0) H 03/22/22 22:05 Chloride 102.3 mmol/L (98-107) 03/22/22 22:05 Carbon Dioxide 25 mmol/L (22-30) 03/22/22 22:05 Anion Gap 18 mmol/L 03/22/22 22:05 BUN 18 mg/dL (9-20) 03/22/22 22:05 Creatinine 1.4 mg/dL (0.8-1.3) H 03/22/22 22:05 Estimated GFR > 60 ml/min 03/22/22 22:05 BUN/Creatinine Ratio 13 % 03/22/22 22:05 Glucose 322 mg/dL (75-100) H 03/22/22 22:05 Lactic Acid 2.00 mmol/L (0.7-2.0) 03/23/22 03:02 Calcium 9.3 mg/dL (8.4-10.2) 03/22/22 22:05 Total Bilirubin < 0.20 mg/dL (0.1-1.2) 03/22/22 22:05 AST 9 units/L (5-40) 03/22/22 22:05 ALT 14 units/L (7-56) 03/22/22 22:05 Alkaline Phosphatase 78 units/L (35-129) 03/22/22 22:05 Ammonia 23.0 umol/L (25-60) L 03/22/22 22:05 Total Creatine Kinase 179 units/L (55-170) H 03/22/22 22:05 Troponin T < 0.010 ng/mL (0.00-0.029) 03/22/22 22:05 Total Protein 6.4 g/dL (6.3-8.2) 03/22/22 22:05 Albumin 4.2 g/dL (3.9-5) 03/22/22 22:05 Albumin/Globulin Ratio 1.6 % 03/22/22 22:05 TSH 1.360 mlU/mL (0.270-4.200) 03/22/22 22:05 Salicylates < 0.3 mg/dL (2.8-20.0) L 03/22/22 22:05 Acetaminophen 5.0 ug/mL (10.0-30.0) L 03/22/22 22:05 Plasma/Serum Alcohol < 0.01 % (0-0.07) 03/22/22 22:05 - Imaging and Cardiology Chest x-ray: report reviewed CT Scan - head: report reviewed Assessment and Plan VTE prophylaxis?: Mechanical Plan of care discussed with patient/family: Yes - Patient Problems (1) Acute metabolic encephalopathy Current Visit: Yes Status: Acute Plan to address problem: Admit the patient to the medical telemetry. Metabolic encephalopathy most likely secondary to hyperglycemia and lactic acidosis. Normal saline at the r ate of 100 cc/h. Rocephin 2 g IV daily. We do the blood culture urine culture. Recheck CBC BMP in the morning. Neurology evaluation (2) Hypertension Current Visit: Yes Status: Acute Plan to address problem: Hydralazine 10 mg IV every 6 hours as needed. Diovan 160 mg p.o. daily. We will monitor the blood pressure closely (3) Hyperlipidemia Current Visit: Yes Status: Acute Plan to address problem: Stable. We will recheck the lipid panel. Continue the home medication (4) Dehydration Current Visit: No Status: Acute Plan to address problem: Normal saline at the rate of 100 cc/h. We will rehydrate the patient slowly. Recheck BMP in the morning (5) Hyperglycemia Current Visit: No Status: Acute Plan to address problem: Accu-Chek every 6 hours with Humalog moderate dose coverage. Diabetic education. Recheck BMP in the morning (6) Lactic acidosis Current Visit: Yes Status: Acute Plan to address problem: Normal saline at the rate of 100 cc/h. Rocephin 2 g IV daily. Recheck the lactic acid in 4 hours (7) DVT prophylaxis Current Visit: Yes Status: Acute Plan to address problem: SCD for DVT prophylaxis. Pepcid 20 mg IV every 12 hours for GI prophylaxis. Patient is a full code.
[2022-03-23] MEDS ORDERED: cefTRIAXone/NS 2 GM/100 ML 2 GM/100 ML BAG IV SCH (06:00)
[2022-03-23] MEDS: INSULIN LISPRO 100 UNIT/ML SUB-Q SCH ×3 (08:34→18:00)
[2022-03-23 09:50] LABS: Bilirubin,Urine NEG (Negative); Blood,Urine NEG (Negative); Color,Urine Yellow (Yellow); Urobilinogen,Urine < 2 mg/dL (<2.0)
[2022-03-23 09:55] LABS: Bacteria,Urine 1+ /HPF (Negative)
[2022-03-23] MEDS: VALSARTAN 160MG TAB PO SCH (11:36)
[2022-03-23] MEDS: FAMOTIDINE 20 MG/2 ML INJ IV SCH ×2 (11:37→22:11)
--- NOTE | 2022-03-23 12:51 | Progress Note ---
Assessment and Plan Assessment and plan: --Acute metabolic encephalopathy most likely secondary to hyperglycemia and lactic acidosis. IV normal saline , neurochecks and supportive care CT head without contrast Rocephin 2 g IV daily. --Hypertension/moderate control Resume home valsartan , as needed IV hydralazine Closely monitor blood pressures and adjust as needed -- Hyperlipidemia Continue stable. Low-cholesterol diet -- Dehydration Normal saline at the rate of 100 cc/h. Plenty of oral fluids Closely monitor -- Type 2 diabetes mellitus; on oral hypoglycemics Accu-Chek, sliding scale coverage, ADA diet long-acting insulin as needed Resume home oral hypoglycemics, check A1c Diabetic education, diabetic diet education prior to discharge -- Lactic acidosis Rigorous IV hydration trend lactate level --DVT prophylaxis- SCD for DVT prophylaxis. Pepcid 20 mg IV every 12 hours for GI prophylaxis. Patient is a full code. -full CODE STATUS; We will closely monitor the patient and adjust management as needed Plan of care reviewed with the patient and his nurse Closely monitor the patient and adjust management as needed Plan of care reviewed with the patient and his nurse Prolonged care inpatient service 35 minutes Advance care planning; +30 minutes I discussed with patient his condition I discussed with patient the tests and reports Consultants recommendations, discussed his diagnosis Discussed her prognosis and treatment plan Patient verbalized understanding History Interval history: I have seen and examined the patient in ER awaiting room assignment Patient is more alert and awake responding to simple questions appropriately Patient has no new complaints vital signs reviewed Hospitalist Physical - Constitutional Vitals: Temp Pulse Resp BP Pulse Ox 97.5 F L 82 18 154/76 97 03/22/22 20:29 03/23/22 08:31 03/23/22 08:31 03/23/22 11:30 03/23/22 11:30 General appearance: Present: no acute distress, well-nourished - EENT Eyes: Present: PERRL, EOM intact - Neck Neck: Present: supple, normal ROM - Respiratory Respiratory effort: normal Respiratory: bilateral: diminished, negative: rales, rhonchi, wheezing - Cardiovascular Rhythm: regular Heart Sounds: Present: S1 & S2 - Extremities Extremities: no ischemia, No edema - Abdominal General gastrointestinal: soft, non-tender, non-distended, normal bowel sounds - Integumentary Integumentary: Present: clear, warm - Psychiatric Psychiatric: appropriate mood/affect, cooperative - Neurologic Neurologic: CNII-XII intact, moves all extremities HEART Score - HEART Score Troponin: Troponin T < 0.010 ng/mL (0.00-0.029) 03/22/22 22:05 Results - Labs CBC & Chem 7: 03/24/22 05:23 03/24/22 05:23 Labs: Laboratory Last Values WBC 13.8 K/mm3 (4.5-11.0) H 03/22/22 22:05 RBC 4.02 M/mm3 (3.65-5.03) 03/22/22 22:05 Hgb 12.7 gm/dl (11.8-15.2) 03/22/22 22:05 Hct 38.0 % (35.5-45.6) 03/22/22 22:05 MCV 95 fl (84-94) H 03/22/22 22:05 MCH 32 pg (28-32) 03/22/22 22:05 MCHC 33 % (32-34) 03/22/22 22:05 RDW 14.6 % (13.2-15.2) 03/22/22 22:05 Plt Count 279 K/mm3 (140-440) 03/22/22 22:05 Lymph % (Auto) 5.3 % (13.4-35.0) L 03/22/22 22:05 [place] % (Auto) 3.5 % (0.0-7.3) 03/22/22 22:05 Eos % (Auto) 0.9 % (0.0-4.3) 03/22/22 22:05 Baso % (Auto) 0.3 % (0.0-1.8) 03/22/22 22:05 Lymph # (Auto) 0.7 K/mm3 (1.2-5.4) L 03/22/22 22:05 [place] # (Auto) 0.5 K/mm3 (0.0-0.8) 03/22/22 22:05 Eos # (Auto) 0.1 K/mm3 (0.0-0.4) 03/22/22 22:05 Baso # (Auto) 0.0 K/mm3 (0.0-0.1) 03/22/22 22:05 Seg Neutrophils % 90.0 % (40.0-70.0) H 03/22/22 22:05 Seg Neutrophils # 12.4 K/mm3 (1.8-7.7) H 03/22/22 22:05 Sodium 140 mmol/L (137-145) 03/22/22 22:05 Potassium 5.1 mmol/L (3.6-5.0) H 03/22/22 22:05 Chloride 102.3 mmol/L (98-107) 03/22/22 22:05 Carbon Dioxide 25 mmol/L (22-30) 03/22/22 22:05 Anion Gap 18 mmol/L 03/22/22 22:05 BUN 18 mg/dL (9-20) 03/22/22 22:05 Creatinine 1.4 mg/dL (0.8-1.3) H 03/22/22 22:05 Estimated GFR > 60 ml/min 03/22/22 22:05 BUN/Creatinine Ratio 13 % 03/22/22 22:05 Glucose 322 mg/dL (75-100) H 03/22/22 22:05 Lactic Acid 1.20 mmol/L (0.7-2.0) 03/23/22 10:36 Calcium 9.3 mg/dL (8.4-10.2) 03/22/22 22:05 Total Bilirubin < 0.20 mg/dL (0.1-1.2) 03/22/22 22:05 AST 9 units/L (5-40) 03/22/22 22:05 ALT 14 units/L (7-56) 03/22/22 22:05 Alkaline Phosphatase 78 units/L (35-129) 03/22/22 22:05 Ammonia 23.0 umol/L (25-60) L 03/22/22 22:05 Total Creatine Kinase 179 units/L (55-170) H 03/22/22 22:05 Troponin T < 0.010 ng/mL (0.00-0.029) 03/22/22 22:05 Total Protein 6.4 g/dL (6.3-8.2) 03/22/22 22:05 Albumin 4.2 g/dL (3.9-5) 03/22/22 22:05 Albumin/Globulin Ratio 1.6 % 03/22/22 22:05 TSH 1.360 mlU/mL (0.270-4.200) 03/22/22 22:05 Urine Color Yellow (Yellow) 03/23/22 Unknown Urine Turbidity Clear (Clear) 03/23/22 Unknown Urine pH 6.0 (5.0-7.0) 03/23/22 Unknown Ur Specific [place] 1.012 (1.003-1.030) 03/23/22 Unknown Urine Protein 100 mg/dl mg/dL (Negative) 03/23/22 Unknown Urine Glucose (UA) >=500 mg/dL (Negative) 03/23/22 Unknown Urine Ketones Neg mg/dL (Negative) 03/23/22 Unknown Urine Blood Neg (Negative) 03/23/22 Unknown Urine Nitrite Neg (Negative) 03/23/22 Unknown Urine Bilirubin Neg (Negative) 03/23/22 Unknown Urine Urobilinogen < 2 mg/dL (<2.0) 03/23/22 Unknown Ur Leukocyte Esterase Neg (Negative) 03/23/22 Unknown Urine WBC (Auto) 4.0 /HPF (0.0-6.0) 03/23/22 Unknown Urine RBC (Auto) 4.0 /HPF (0.0-6.0) 03/23/22 Unknown Urine Bacteria (Auto) 1+ /HPF (Negative) 03/23/22 Unknown Salicylates < 0.3 mg/dL (2.8-20.0) L 03/22/22 22:05 Acetaminophen 5.0 ug/mL (10.0-30.0) L 03/22/22 22:05 Plasma/Serum Alcohol < 0.01 % (0-0.07) 03/22/22 22:05 Active Medications - Current Medications Current Medications: Generic Name Dose Route Start Last Admin Trade Name Freq PRN Reason Stop Dose Admin Acetaminophen 650 mg 03/23/22 05:09 Acetaminophen 325 Mg Tab PO Q4H PRN Pain MILD(1-3)/Fever >100.5/LITTLE Albuterol 2.5 mg 03/23/22 05:09 Albuterol 2.5 Mg/3 Ml Nebu IH Q3HRT PRN Shortness Of Breath Albuterol/Ipratropium 1 ampul 03/23/22 08:00 Ipratropium/Albuterol Sulfate 3 Ml Ampul.Neb IH Q6HRT AMRITA Dextrose 50 ml 03/23/22 05:09 Dextrose 50% In Water (25gm) 50 Ml Syringe IV Q30MIN PRN Hypoglycemia Protocol Famotidine 20 mg 03/23/22 10:00 03/23/22 11:37 Famotidine 20 Mg/2 Ml Inj IV 20 mg BID AMRITA Administration Sodium Chloride 1,000 mls @ 100 mls/hr 03/23/22 05:15 Nacl 0.9% 1000 Ml IV DIRECT AMRITA Ceftriaxone Sodium 1 gm in 50 mls @ 100 mls/hr 03/24/22 10:00 Rocephin/Ns 1 Gm/50 Ml IV Q24H AMRITA Protocol Insulin Human Lispro 0 unit 03/23/22 06:00 03/23/22 08:34 Insulin Lispro 100 Unit/Ml SUB-Q 3 unit Q6HR AMRITA Administration Protocol Morphine Sulfate 2 mg 03/23/22 05:09 Morphine 2 Mg/1 Ml Inj IV Q4H PRN Pain, Moderate (4-6) Morphine Sulfate 4 mg 03/23/22 05:09 Morphine 4 Mg/1 Ml Inj IV Q4H PRN Pain , Severe (7-10) Ondansetron HCl 4 mg 03/23/22 05:09 Ondansetron 4 Mg/2 Ml Inj IV Q8H PRN Nausea And Vomiting Sodium Chloride 10 ml 03/23/22 10:00 03/23/22 11:37 Sodium Chloride 0.9% 10 Ml Flush Syringe IV 10 ml BID AMRITA Administration Sodium Chloride 10 ml 03/23/22 05:09 Sodium Chloride 0.9% 10 Ml Flush Syringe IV PRN PRN LINE FLUSH Valsartan 160 mg 03/23/22 10:00 03/23/22 11:36 Valsartan 160mg Tab PO 160 mg DAILY AMRITA Administration Nutrition/Malnutrition Assess - Dietary Evaluation Nutrition/Malnutrition Findings: Nutrition Notes Start: 03/23/22 12:40 Freq: Status: Active Protocol: Document 03/23/22 12:40 ADILENE (Rec: 03/23/22 12:50 ADILENE [id number]) Nutrition Notes Need for Assessment generated from: MD Order,Education Initial or Follow up Brief Note Current Diagnosis Acute Kidney Injury,Diabetes, Hypertension,Hyperlipidemia Other Pertinent Diagnosis Metabolic Encephalopathy, Dehydration, Hyperglycemia, Lactic Acidosis, ... Current Diet Cardiac/Consistent Carbohydrates Diet (since B ). Height 6 ft 2 in Weight 77.111 kg [place] Body Weight (kg) 86.36 BMI 21.8 Weight change and time frame None provided at admission. Weight Status Appropriate Subjective/Other Information RD consult for nutrition education assessment. No reports available on Pt's PO intake of meals at the time , will assess PO intake of meals at F/U. Pt is on Room Air, O2 saturation @ 100%, according to Physical Assessment History notes. Pt passed bedside swallow assessment on 03/22, according to Swallow Screen notes. Pt still in critical condition , not a candidate for Nutrition Education at the time, will assess feasibility on F/U. Percent of energy/protein needs met: Prescribed Cardiac/Consistent Carbohydrates Diet provides for energy/protein needs (1, 977 Kcal/86 g) during LOS. Nutrition Intervention Follow-Up By: 03/28/22 Additional Comments Nutrition education will be provided at F/U, if feasible. Continue monitoring food tolerance, %PO intake of meals , and BM.
[2022-03-23] MEDS: IPRATROPIUM/ALBUTEROL SULFATE 3 ML AMPUL.NEB IH SCH ×2 (18:13→20:33)
[2022-03-23] MEDS: SODIUM CHLORIDE 0.9% 1000 ML 1,000 ML IV SCH (19:19)
[2022-03-24] MEDS: IPRATROPIUM/ALBUTEROL SULFATE 3 ML AMPUL.NEB IH SCH ×4 (02:16→19:45)
[2022-03-24] MEDS: INSULIN LISPRO 100 UNIT/ML SUB-Q SCH ×4 (03:20→18:07)
[2022-03-24] MEDS: SODIUM CHLORIDE 0.9% 1000 ML 1,000 ML IV SCH ×2 (03:23→18:10)
[2022-03-24 05:46] LABS: Basophils % (Auto) 0.3 % (0.0-1.8); Eosinophils # (Auto) 0.4 K/mm3 (0.0-0.4); Eosinophils % (Auto) 4.1 % (0.0-4.3); Hematocrit 35.4 % (35.5-45.6); Hemoglobin 11.9 gm/dl (11.8-15.2); Lymphocytes # (Auto) 2.1 K/mm3 (1.2-5.4); Lymphocytes % (Auto) 24.9 % (13.4-35.0); Mean Corpuscular HGB Conc 34 % (32-34); Mean Corpuscular Volume 95 fl (84-94); Monocytes # (Auto) 0.6 K/mm3 (0.0-0.8); Monocytes % (Auto) 6.7 % (0.0-7.3); Platelet Count 265 K/mm3 (140-440); Red Blood Count 3.75 M/mm3 (3.65-5.03); Red Cell Distribution Width 14.4 % (13.2-15.2)
[2022-03-24 06:07] LABS: BUN/Creatinine Ratio 15; Blood Urea Nitrogen 15 mg/dL (9-20); Calcium 8.9 mg/dL (8.4-10.2); Hemolysis Index 9
[2022-03-24] MEDS: FAMOTIDINE 20 MG TAB PO SCH ×2 (09:34→22:48)
[2022-03-24] MEDS: cefTRIAXone/NS 1 GM/50 ML 1 GM/50 ML BAG IV SCH (09:34)
[2022-03-24] MEDS: VALSARTAN 160MG TAB PO SCH (09:36)
--- NOTE | 2022-03-24 16:24 | Progress Note ---
Assessment and Plan Assessment and plan: --Acute metabolic encephalopathy most likely secondary to hyperglycemia and lactic acidosis. IV normal saline , neurochecks and supportive care CT head without contrast Rocephin 2 g IV daily. --Hypertension/moderate control Resume home valsartan , as needed IV hydralazine Closely monitor blood pressures and adjust as needed -- Hyperlipidemia Continue stable. Low-cholesterol diet -- Dehydration Normal saline at the rate of 100 cc/h. Plenty of oral fluids Closely monitor -- Type 2 diabetes mellitus; on oral hypoglycemics Accu-Chek, sliding scale coverage, ADA diet long-acting insulin as needed Resume home oral hypoglycemics, check A1c Diabetic education, diabetic diet education prior to discharge -- Lactic acidosis Rigorous IV hydration trend lactate level --DVT prophylaxis- SCD for DVT prophylaxis. Pepcid 20 mg IV every 12 hours for GI prophylaxis. Patient is a full code. -full CODE STATUS; We will closely monitor the patient and adjust management as needed Plan of care reviewed with the patient and his nurse Closely monitor the patient and adjust management as needed Plan of care reviewed with the patient and his nurse Advance care planning; +30 minutes I discussed with the patient his condition, I discussed his tests and reports I discussed with him his diagnosis, I discussed the treatment plan, I also discussed the discharge planning And he is medically stable and ready for discharge, he had few questions I answered all of them, he agreed with the plan History Interval history: I have seen and examined the patient at the bedside Patient's chart and medications reviewed Patient slightly confused no new overnight events reported with nursing Vital signs noted Hospitalist Physical - Constitutional Vitals: Temp Pulse Resp BP Pulse Ox 97.5 F L 86 19 148/76 97 03/24/22 09:13 03/24/22 10:00 03/24/22 09:13 03/24/22 09:36 03/24/22 10:00 General appearance: Present: no acute distress, well-nourished - EENT Eyes: Present: PERRL, EOM intact ENT: hearing intact, clear oral mucosa - Neck Neck: Present: supple, normal ROM - Respiratory Respiratory effort: normal Respiratory: bilateral: diminished, negative: rales, rhonchi, wheezing - Cardiovascular Rhythm: regular Heart Sounds: Present: S1 & S2 - Extremities Extremities: no ischemia, No edema - Abdominal General gastrointestinal: soft, non-tender, non-distended - Integumentary Integumentary: Present: clear, warm - Psychiatric Psychiatric: appropriate mood/affect, cooperative - Neurologic Neurologic: moves all extremities HEART Score - HEART Score Troponin: Troponin T < 0.010 ng/mL (0.00-0.029) 03/22/22 22:05 Results - Labs CBC & Chem 7: 03/24/22 05:23 03/24/22 05:23 Labs: Laboratory Last Values WBC 8.6 K/mm3 (4.5-11.0) 03/24/22 05:23 RBC 3.75 M/mm3 (3.65-5.03) 03/24/22 05:23 Hgb 11.9 gm/dl (11.8-15.2) 03/24/22 05:23 Hct 35.4 % (35.5-45.6) L 03/24/22 05:23 MCV 95 fl (84-94) H 03/24/22 05:23 MCH 32 pg (28-32) 03/24/22 05:23 MCHC 34 % (32-34) 03/24/22 05:23 RDW 14.4 % (13.2-15.2) 03/24/22 05:23 Plt Count 265 K/mm3 (140-440) 03/24/22 05:23 Lymph % (Auto) 24.9 % (13.4-35.0) 03/24/22 05:23 [place] % (Auto) 6.7 % (0.0-7.3) 03/24/22 05:23 Eos % (Auto) 4.1 % (0.0-4.3) 03/24/22 05:23 Baso % (Auto) 0.3 % (0.0-1.8) 03/24/22 05:23 Lymph # (Auto) 2.1 K/mm3 (1.2-5.4) 03/24/22 05:23 [place] # (Auto) 0.6 K/mm3 (0.0-0.8) 03/24/22 05:23 Eos # (Auto) 0.4 K/mm3 (0.0-0.4) 03/24/22 05:23 Baso # (Auto) 0.0 K/mm3 (0.0-0.1) 03/24/22 05:23 Seg Neutrophils % 64.0 % (40.0-70.0) 03/24/22 05:23 Seg Neutrophils # 5.5 K/mm3 (1.8-7.7) 03/24/22 05:23 Sodium 143 mmol/L (137-145) 03/24/22 05:23 Potassium 4.5 mmol/L (3.6-5.0) 03/24/22 05:23 Chloride 107.5 mmol/L (98-107) H 03/24/22 05:23 Carbon Dioxide 24 mmol/L (22-30) 03/24/22 05:23 Anion Gap 16 mmol/L 03/24/22 05:23 BUN 15 mg/dL (9-20) 03/24/22 05:23 Creatinine 1.0 mg/dL (0.8-1.3) 03/24/22 05:23 Estimated GFR > 60 ml/min 03/24/22 05:23 BUN/Creatinine Ratio 15 % 03/24/22 05:23 Glucose 161 mg/dL (75-100) H 03/24/22 05:23 POC Glucose 180 mg/dL (70-105) H 03/24/22 15:22 Lactic Acid 1.20 mmol/L (0.7-2.0) 03/23/22 10:36 Calcium 8.9 mg/dL (8.4-10.2) 03/24/22 05:23 Total Bilirubin < 0.20 mg/dL (0.1-1.2) 03/22/22 22:05 AST 9 units/L (5-40) 03/22/22 22:05 ALT 14 units/L (7-56) 03/22/22 22:05 Alkaline Phosphatase 78 units/L (35-129) 03/22/22 22:05 Ammonia 23.0 umol/L (25-60) L 03/22/22 22:05 Total Creatine Kinase 179 units/L (55-170) H 03/22/22 22:05 Troponin T < 0.010 ng/mL (0.00-0.029) 03/22/22 22:05 Total Protein 6.4 g/dL (6.3-8.2) 03/22/22 22:05 Albumin 4.2 g/dL (3.9-5) 03/22/22 22:05 Albumin/Globulin Ratio 1.6 % 03/22/22 22:05 TSH 1.360 mlU/mL (0.270-4.200) 03/22/22 22:05 Urine Color Yellow (Yellow) 03/23/22 Unknown Urine Turbidity Clear (Clear) 03/23/22 Unknown Urine pH 6.0 (5.0-7.0) 03/23/22 Unknown Ur Specific [place] 1.012 (1.003-1.030) 03/23/22 Unknown Urine Protein 100 mg/dl mg/dL (Negative) 03/23/22 Unknown Urine Glucose (UA) >=500 mg/dL (Negative) 03/23/22 Unknown Urine Ketones Neg mg/dL (Negative) 03/23/22 Unknown Urine Blood Neg (Negative) 03/23/22 Unknown Urine Nitrite Neg (Negative) 03/23/22 Unknown Urine Bilirubin Neg (Negative) 03/23/22 Unknown Urine Urobilinogen < 2 mg/dL (<2.0) 03/23/22 Unknown Ur Leukocyte Esterase Neg (Negative) 03/23/22 Unknown Urine WBC (Auto) 4.0 /HPF (0.0-6.0) 03/23/22 Unknown Urine RBC (Auto) 4.0 /HPF (0.0-6.0) 03/23/22 Unknown Urine Bacteria (Auto) 1+ /HPF (Negative) 03/23/22 Unknown Salicylates < 0.3 mg/dL (2.8-20.0) L 03/22/22 22:05 Acetaminophen 5.0 ug/mL (10.0-30.0) L 03/22/22 22:05 Plasma/Serum Alcohol < 0.01 % (0-0.07) 03/22/22 22:05 [place]/IV: Voiding Method Urinal Active Medications - Current Medications Current Medications: Generic Name Dose Route Start Last Admin Trade Name Freq PRN Reason Stop Dose Admin Acetaminophen 650 mg 03/23/22 05:09 Acetaminophen 325 Mg Tab PO Q4H PRN Pain MILD(1-3)/Fever >100.5/LITTLE Albuterol 2.5 mg 03/23/22 05:09 Albuterol 2.5 Mg/3 Ml Nebu IH Q3HRT PRN Shortness Of Breath Albuterol/Ipratropium 1 ampul 03/23/22 08:00 03/24/22 13:45 Ipratropium/Albuterol Sulfate 3 Ml Ampul.Neb IH 1 ampul Q6HRT AMRITA Administration Dextrose 50 ml 03/23/22 05:09 Dextrose 50% In Water (25gm) 50 Ml Syringe IV Q30MIN PRN Hypoglycemia Protocol Famotidine 20 mg 03/24/22 10:00 03/24/22 09:34 Famotidine 20 Mg Tab PO 20 mg BID AMRITA Administration Sodium Chloride 1,000 mls @ 100 mls/hr 03/23/22 05:15 03/24/22 03:23 Nacl 0.9% 1000 Ml IV 100 mls/hr DIRECT AMRITA Administration Ceftriaxone Sodium 1 gm in 50 mls @ 100 mls/hr 03/24/22 10:00 03/24/22 09:34 Rocephin/Ns 1 Gm/50 Ml IV 100 mls/hr Q24H AMRITA Administration Protocol Insulin Human Lispro 0 unit 03/23/22 06:00 03/24/22 06:20 Insulin Lispro 100 Unit/Ml SUB-Q 2 unit Q6HR AMRITA Administration Protocol Morphine Sulfate 2 mg 03/23/22 05:09 Morphine 2 Mg/1 Ml Inj IV Q4H PRN Pain, Moderate (4-6) Morphine Sulfate 4 mg 03/23/22 05:09 Morphine 4 Mg/1 Ml Inj IV Q4H PRN Pain , Severe (7-10) Ondansetron HCl 4 mg 03/23/22 05:09 Ondansetron 4 Mg/2 Ml Inj IV Q8H PRN Nausea And Vomiting Sodium Chloride 10 ml 03/23/22 10:00 03/24/22 09:35 Sodium Chloride 0.9% 10 Ml Flush Syringe IV 10 ml BID AMRITA Administration Sodium Chloride 10 ml 03/23/22 05:09 Sodium Chloride 0.9% 10 Ml Flush Syringe IV PRN PRN LINE FLUSH Valsartan 160 mg 03/23/22 10:00 03/24/22 09:36 Valsartan 160mg Tab PO 160 mg DAILY AMRITA Administration Nutrition/Malnutrition Assess - Dietary Evaluation Nutrition/Malnutrition Findings: Nutrition Notes Start: 03/23/22 12:4 0 Freq: Status: Active Protocol: Document 03/23/22 12:40 ADILENE (Rec: 03/23/22 12:50 ADILENE [id number]) Nutrition Notes Need for Assessment generated from: MD Order,Education Initial or Follow up Brief Note Current Diagnosis Acute Kidney Injury,Diabetes, Hypertension,Hyperlipidemia Other Pertinent Diagnosis Metabolic Encephalopathy, Dehydration, Hyperglycemia, Lactic Acidosis, ... Current Diet Cardiac/Consistent Carbohydrates Diet (since B ). Height 6 ft 2 in Weight 77.111 kg [place] Body Weight (kg) 86.36 BMI 21.8 Weight change and time frame None provided at admission. Weight Status Appropriate Subjective/Other Information RD consult for malnutrition and nutrition education assessments. No reports available on Pt's PO intake of meals at the time , will assess PO intake of meals at F/U. Pt is on Room Air, O2 saturation @ 100%, according to Physical Assessment History notes. Pt passed bedside swallow assessment on 03/22, according to Swallow Screen notes. Pt still in critical condition , not a candidate for Nutrition Education at the time, will assess feasibility on F/U. No information available in the chart to assess for malnutrition at the time, will assess at F/U. Percent of energy/protein needs met: Prescribed Cardiac/Consistent Carbohydrates Diet provides for energy/protein needs (1, 977 Kcal/86 g) during LOS. Nutrition Intervention Follow-Up By: 03/28/22 Additional Comments Nutrition education will be provided at F/U, if feasible. Continue monitoring food tolerance, %PO intake of meals , and BM.
[2022-03-25] MEDS: INSULIN LISPRO 100 UNIT/ML SUB-Q SCH ×4 (01:02→18:37)
[2022-03-25] MEDS: IPRATROPIUM/ALBUTEROL SULFATE 3 ML AMPUL.NEB IH SCH ×4 (01:45→21:11)
[2022-03-25] MEDS: SODIUM CHLORIDE 0.9% 1000 ML 1,000 ML IV SCH ×2 (04:36→18:33)
[2022-03-25] MEDS: VALSARTAN 160MG TAB PO SCH (10:41)
[2022-03-25] MEDS: FAMOTIDINE 20 MG TAB PO SCH ×2 (10:41→22:21)
[2022-03-25] MEDS: cefTRIAXone/NS 1 GM/50 ML 1 GM/50 ML BAG IV SCH (10:41)
--- NOTE | 2022-03-25 11:12 | Progress Note ---
Assessment and Plan Assessment and plan: 61-year-old male with history of diabetes and hypertension, and psychiatric illness was brought to the emergency room brought because of altered mental status. Further history limited secondary to altered mental status. In the emergency room patient WBC was 13.8, lactic acid 2.70, glucose 322, BUN [address] head shows no acute intracranial abnormality. Advanced microvascular ischemic changes and multifocal remote small deep infarctions are identified. Chest x-ray shows no acute abnormality of the chest. So we are going to admit the patient and put the patient on IV fluid IV antibiotic and consult neurology for evaluation Acute metabolic encephalopathy SIRS. Present on admission. Patient meets criteria given the tachycardia, leukocytosis and altered mentation. Acute kidney injury secondary to vasomotor nephropathy Hypertension Hyperlipidemia Diabetes mellitus type 2, uncontrolled Lactic acidosis 03/25/2022. Patient with no source of infection. Chest x-ray and urinalysis negative. Blood cultures not completed on admission. We will check blood cultures to rule out bacteremia. Continue empiric antibiotics of Rocephin. Unsure of patient's baseline mental status. I suspect patient may have some underlying vascular dementia based on CT scan. Await neurology consultation. Creatinine normalized with IV fluid hydration History Interval history: No new issues overnight Hospitalist Physical - Constitutional Vitals: Temp Pulse Resp BP Pulse Ox 97.9 F 75 18 138/76 96 03/25/22 04:36 03/25/22 08:00 03/25/22 08:00 03/25/22 04:36 03/25/22 08:43 General appearance: Present: no acute distress, well-nourished - EENT Eyes: Present: PERRL, EOM intact ENT: hearing intact, clear oral mucosa, dentition normal - Neck Neck: Present: supple, normal ROM - Respiratory Respiratory effort: normal Respiratory: bilateral: CTA - Cardiovascular Rhythm: regular Heart Sounds: Present: S1 & S2. Absent: gallop, rub - Extremities Extremities: no ischemia, No edema, Full ROM - Abdominal General gastrointestinal: soft, non-tender, non-distended, normal bowel sounds - Integumentary Integumentary: Present: clear, warm, dry - Neurologic Neurologic: CNII-XII intact, moves all extremities HEART Score - HEART Score Troponin: Troponin T < 0.010 ng/mL (0.00-0.029) 03/22/22 22:05 Results - Labs CBC & Chem 7: 03/24/22 05:23 03/24/22 05:23 Labs: Laboratory Last Values WBC 8.6 K/mm3 (4.5-11.0) 03/24/22 05:23 RBC 3.75 M/mm3 (3.65-5.03) 03/24/22 05:23 Hgb 11.9 gm/dl (11.8-15.2) 03/24/22 05:23 Hct 35.4 % (35.5-45.6) L 03/24/22 05:23 MCV 95 fl (84-94) H 03/24/22 05:23 MCH 32 pg (28-32) 03/24/22 05:23 MCHC 34 % (32-34) 03/24/22 05:23 RDW 14.4 % (13.2-15.2) 03/24/22 05:23 Plt Count 265 K/mm3 (140-440) 03/24/22 05:23 Lymph % (Auto) 24.9 % (13.4-35.0) 03/24/22 05:23 [place] % (Auto) 6.7 % (0.0-7.3) 03/24/22 05:23 Eos % (Auto) 4.1 % (0.0-4.3) 03/24/22 05:23 Baso % (Auto) 0.3 % (0.0-1.8) 03/24/22 05:23 Lymph # (Auto) 2.1 K/mm3 (1.2-5.4) 03/24/22 05:23 [place] # (Auto) 0.6 K/mm3 (0.0-0.8) 03/24/22 05:23 Eos # (Auto) 0.4 K/mm3 (0.0-0.4) 03/24/22 05:23 Baso # (Auto) 0.0 K/mm3 (0.0-0.1) 03/24/22 05:23 Seg Neutrophils % 64.0 % (40.0-70.0) 03/24/22 05:23 Seg Neutrophils # 5.5 K/mm3 (1.8-7.7) 03/24/22 05:23 Sodium 143 mmol/L (137-145) 03/24/22 05:23 Potassium 4.5 mmol/L (3.6-5.0) 03/24/22 05:23 Chloride 107.5 mmol/L (98-107) H 03/24/22 05:23 Carbon Dioxide 24 mmol/L (22-30) 03/24/22 05:23 Anion Gap 16 mmol/L 03/24/22 05:23 BUN 15 mg/dL (9-20) 03/24/22 05:23 Creatinine 1.0 mg/dL (0.8-1.3) 03/24/22 05:23 Estimated GFR > 60 ml/min 03/24/22 05:23 BUN/Creatinine Ratio 15 % 03/24/22 05:23 Glucose 161 mg/dL (75-100) H 03/24/22 05:23 POC Glucose 158 mg/dL (70-105) H 03/25/22 06:15 Lactic Acid 1.20 mmol/L (0.7-2.0) 03/23/22 10:36 Calcium 8.9 mg/dL (8.4-10.2) 03/24/22 05:23 Total Bilirubin < 0.20 mg/dL (0.1-1.2) 03/22/22 22:05 AST 9 units/L (5-40) 03/22/22 22:05 ALT 14 units/L (7-56) 03/22/22 22:05 Alkaline Phosphatase 78 units/L (35-129) 03/22/22 22:05 Ammonia 23.0 umol/L (25-60) L 03/22/22 22:05 Total Creatine Kinase 179 units/L (55-170) H 03/22/22 22:05 Troponin T < 0.010 ng/mL (0.00-0.029) 03/22/22 22:05 Total Protein 6.4 g/dL (6.3-8.2) 03/22/22 22:05 Albumin 4.2 g/dL (3.9-5) 03/22/22 22:05 Albumin/Globulin Ratio 1.6 % 03/22/22 22:05 TSH 1.360 mlU/mL (0.270-4.200) 03/22/22 22:05 Urine Color Yellow (Yellow) 03/23/22 Unknown Urine Turbidity Clear (Clear) 03/23/22 Unknown Urine pH 6.0 (5.0-7.0) 03/23/22 Unknown Ur Specific [place] 1.012 (1.003-1.030) 03/23/22 Unknown Urine Protein 100 mg/dl mg/dL (Negative) 03/23/22 Unknown Urine Glucose (UA) >=500 mg/dL (Negative) 03/23/22 Unknown Urine Ketones Neg mg/dL (Negative) 03/23/22 Unknown Urine Blood Neg (Negative) 03/23/22 Unknown Urine Nitrite Neg (Negative) 03/23/22 Unknown Urine Bilirubin Neg (Negative) 03/23/22 Unknown Urine Urobilinogen < 2 mg/dL (<2.0) 03/23/22 Unknown Ur Leukocyte Esterase Neg (Negative) 03/23/22 Unknown Urine WBC (Auto) 4.0 /HPF (0.0-6.0) 03/23/22 Unknown Urine RBC (Auto) 4.0 /HPF (0.0-6.0) 03/23/22 Unknown Urine Bacteria (Auto) 1+ /HPF (Negative) 03/23/22 Unknown Salicylates < 0.3 mg/dL (2.8-20.0) L 03/22/22 22:05 Acetaminophen 5.0 ug/mL (10.0-30.0) L 03/22/22 22:05 Plasma/Serum Alcohol < 0.01 % (0-0.07) 03/22/22 22:05 Segal/IV: Voiding Method Urinal Active Medications - Current Medications Current Medications: Generic Name Dose Route Start Last Admin Trade Name Freq PRN Reason Stop Dose Admin Acetaminophen 650 mg 03/23/22 05:09 Acetaminophen 325 Mg Tab PO Q4H PRN Pain MILD(1-3)/Fever >100.5/LITTLE Albuterol 2.5 mg 03/23/22 05:09 Albuterol 2.5 Mg/3 Ml Nebu IH Q3HRT PRN Shortness Of Breath Albuterol/Ipratropium 1 ampul 03/23/22 08:00 03/25/22 08:42 Ipratropium/Albuterol Sulfate 3 Ml Ampul.Neb IH 1 ampul Q6HRT AMRITA Administration Dextrose 50 ml 03/23/22 05:09 Dextrose 50% In Water (25gm) 50 Ml Syringe IV Q30MIN PRN Hypoglycemia Protocol Famotidine 20 mg 03/24/22 10:00 03/25/22 10:41 Famotidine 20 Mg Tab PO 20 mg BID AMRITA Administration Sodium Chloride 1,000 mls @ 100 mls/hr 03/23/22 05:15 03/25/22 04:36 Nacl 0.9% 1000 Ml IV 100 mls/hr DIRECT AMRITA Administration Insulin Human Lispro 0 unit 03/23/22 06:00 03/25/22 06:30 Insulin Lispro 100 Unit/Ml SUB-Q 2 unit Q6HR AMRITA Administration Protocol Morphine Sulfate 2 mg 03/23/22 05:09 Morphine 2 Mg/1 Ml Inj IV Q4H PRN Pain, Moderate (4-6) Morphine Sulfate 4 mg 03/23/22 05:09 Morphine 4 Mg/1 Ml Inj IV Q4H PRN Pain , Severe (7-10) Ondansetron HCl 4 mg 03/23/22 05:09 Ondansetron 4 Mg/2 Ml Inj IV Q8H PRN Nausea And Vomiting Sodium Chloride 10 ml 03/23/22 10:00 03/25/22 10:42 Sodium Chloride 0.9% 10 Ml Flush Syringe IV 10 ml BID AMRITA Administration Sodium Chloride 10 ml 03/23/22 05:09 Sodium Chloride 0.9% 10 Ml Flush Syringe IV PRN PRN LINE FLUSH Valsartan 160 mg 03/23/22 10:00 03/25/22 10:41 Valsartan 160mg Tab PO 160 mg DAILY AMRITA Administration Nutrition/Malnutrition Assess - Dietary Evaluation Nutrition/Malnutrition Findings: Nutrition Notes Start: 03/23/22 12:40 Freq: Status: Active Protocol: Document 03/23/22 12:40 ADILENE (Rec: 03/23/22 12:50 ADILENE [id number]) Nutrition Notes Need for Assessment generated from: MD Order,Education Initial or Follow up Brief Note Current Diagnosis Acute Kidney Injury,Diabetes, Hypertension,Hyperlipidemia Other Pertinent Diagnosis Metabolic Encephalopathy, Dehydration, Hyperglycemia, Lactic Acidosis, ... Current Diet Cardiac/Consistent Carbohydrates Diet (since B ). Height 6 ft 2 in Weight 77.111 kg [place] Body Weight (kg) 86.36 BMI 21.8 Weight change and time frame None provided at admission. Weight Status Appropriate Subjective/Other Information RD consult for malnutrition and nutrition education assessments. No reports available on Pt's PO intake of meals at the time , will assess PO intake of meals at F/U. Pt is on Room Air, O2 saturation @ 100%, according to Physical Assessment History notes. Pt passed bedside swallow assessment on 03/22, according to Swallow Screen notes. Pt still in critical condition , not a candidate for Nutrition Education at the time, will assess feasibility on F/U. No information available in the chart to assess for malnutrition at the time, will assess at F/U. Percent of energy/protein needs met: Prescribed Cardiac/Consistent Carbohydrates Diet provides for energy/protein needs (1, 977 Kcal/86 g) during LOS. Nutrition Intervention Follow-Up By: 03/28/22 Additional Comments Nutrition education will be provided at F/U, if feasible. Continue monitoring food tolerance, %PO intake of meals , and BM.
[2022-03-26] MEDS: INSULIN LISPRO 100 UNIT/ML SUB-Q SCH ×3 (00:05→13:54)
[2022-03-26] MEDS: IPRATROPIUM/ALBUTEROL SULFATE 3 ML AMPUL.NEB IH SCH ×3 (01:59→13:01)
[2022-03-26 06:33] LABS: Basophils # (Auto) 0.1 K/mm3 (0.0-0.1); Basophils % (Auto) 0.6 % (0.0-1.8); Eosinophils # (Auto) 0.4 K/mm3 (0.0-0.4); Eosinophils % (Auto) 4.5 % (0.0-4.3); Hematocrit 32.4 % (35.5-45.6); Lymphocytes % (Auto) 23.6 % (13.4-35.0); Mean Corpuscular HGB Conc 34 % (32-34); Mean Corpuscular Volume 94 fl (84-94); Monocytes # (Auto) 0.6 K/mm3 (0.0-0.8); Monocytes % (Auto) 6.7 % (0.0-7.3); Platelet Count 257 K/mm3 (140-440); Red Blood Count 3.46 M/mm3 (3.65-5.03); Red Cell Distribution Width 14.3 % (13.2-15.2)
[2022-03-26 08:32] LABS: BUN/Creatinine Ratio 16; Blood Urea Nitrogen 13 mg/dL (9-20); Calcium 8.7 mg/dL (8.4-10.2); Hemolysis Index 12
--- NOTE | 2022-03-26 09:30 | Discharge Summary ---
Providers - Providers Date of Admission: 03/23/22 05:09 Date of discharge: 03/26/22 Attending physician: ISAÍAS PRABHAKAR 03/23/22 05:09 Consult to Dietitian/Nutrition [CONS] Routine Physician Instructions: Reason For Exam: Reason for Consult: Diet education 03/23/22 05:10 Consult to Dietitian/Nutrition [CONS] Routine Physician Instructions: Reason For Exam: Reason for Consult: Malnutrition 03/23/22 05:27 Consult to Physician [CONS] Routine Comment: Consulting Provider: KIM BEDOYA Physician Instructions: Reason For Exam: ams 03/24/22 16:25 Physical Therapy Evaluation and Treat [CONS] Routine Comment: Reason For Exam: General debility/evaluate and treat/DC needs Primary care physician: MIGUEL SCHMIDT Hospitalization Reason for admission: AMS Condition: Stable Hospital course: 61-year-old male with history of diabetes and hypertension, and psychiatric illness was brought to the emergency room brought because of altered mental status. Further history limited secondary to altered mental status. In the emergency room patient WBC was 13.8, lactic acid 2.70, glucose 322, BUN [address] head shows no acute intracranial abnormality. Advanced microvascular ischemic changes and multifocal remote small deep infarctions are identified. Chest x-ray shows no acute abnormality of the chest. The patient was admitted with diagnosis below Acute metabolic encephalopathy SIRS. Present on admission. Patient meets criteria given the tachycardia, leukocytosis and altered mentation. Acute kidney injury secondary to vasomotor nephropathy Hypertension Hyperlipidemia Diabetes mellitus type 2, uncontrolled Lactic acidosis Patient with no source of infection. Chest x-ray and urinalysis negative. Blood cultures not completed on admission. Blood cultures were checked to rule out bacteremia. Patient was treated with empiric antibiotics of Rocephin. I discussed the patient's baseline mental status with the who reports patient does have underlying vascular dementia as confirmed by MRI earlier this year. CT scan also reaffirms this diagnosis. Acute kidney injury resolved with creatinine back to baseline with IV fluid hydration. Patient is felt to receive maximal hospital benefit and will be discharged home. Dedicated discharge time 32 minutes Disposition: 30 STILL A PATIENT Final Discharge Diagnosis (Prints w/discharge instructions): Acute metabolic encephalopathy. SIRS. Present on admission. Patient meets criteria given the tachycardia, leukocytosis and altered mentation. Acute kidney injury secondary to vasomotor nephropathy. Hypertension. Hyperlipidemia. Diabetes mellitus typ e 2, uncontrolled. Lactic acidosis Core Measure Documentation - Palliative Care Palliative Care/ Comfort Measures: Not Applicable - Core Measures Any of the following diagnoses?: none Exam - Constitutional Vitals: Temp Pulse Resp BP Pulse Ox 98.6 F 89 19 111/55 98 03/26/22 08:05 03/26/22 09:23 03/26/22 09:23 03/26/22 08:05 03/26/22 08:05 General appearance: Present: no acute distress, well-nourished - EENT Eyes: Present: PERRL ENT: hearing intact, clear oral mucosa - Neck Neck: Present: supple, normal ROM - Respiratory Respiratory effort: normal Respiratory: bilateral: CTA - Cardiovascular Heart Sounds: Present: S1 & S2. Absent: rub, click - Extremities Extremities: pulses symmetrical, No edema Peripheral Pulses: within normal limits - Abdominal General gastrointestinal: Present: soft, non-tender, non-distended, normal bowel sounds Male genitourinary: Present: normal - Integumentary Integumentary: Present: clear, warm, dry - Musculoskeletal Musculoskeletal: gait normal, strength equal bilaterally - Psychiatric Psychiatric: appropriate mood/affect, intact judgment & insight - Neurologic Neurologic: CNII-XII intact, moves all extremities Plan Activity: advance as tolerated Weight Bearing Status: Weight Bear as Tolerated Diet: diabetic Follow up with: MIGUEL SCHMIDT MD [Primary Care Provider] - 7 Days
[2022-03-26] MEDS: FAMOTIDINE 20 MG TAB PO SCH (09:34)
[2022-03-26] MEDS ORDERED: cefTRIAXone/NS 1 GM/50 ML 1 GM/50 ML BAG IV SCH (10:00)
[2022-03-26] MEDS: VALSARTAN 160MG TAB PO SCH ×2 (10:25→13:54)
[2022-03-26 11:41] VITALS: BP 153/78
== END 2022-03-26 16:47 | disposition home or self-care (01) | DRG 637 ==
LOC: ED 20:25 → 4A 03-23 05:09
PROVIDERS: ADMIT Hospitalist; ATTEND Hospitalist
DX: E11.65 Type 2 diabetes mellitus with hyperglycemia (principal); G93.41 Metabolic encephalopathy; N17.0 Acute kidney failure with tubular necrosis; E87.2 Acidosis; R65.10 Systemic inflammatory response syndrome (SIRS) of non-infectious origin without acute organ dysfunction; I10 Essential (primary) hypertension; E78.5 Hyperlipidemia, unspecified; E86.0 Dehydration; Z83.3 Family history of diabetes mellitus
CPT/HCPCS: 36415; 70450; 71045; 80048; 80053; 80320; 81001; 82140; 82550; 82962; 84443; 84484; 85025; 87040; 94640; 96374; 99285; 99406; G0378; J3490; Q9967; G0480; J0696; J1815; J7030